=== PATIENT | female | born 1945 | race American Indian/Alaskan Native ===

== ENCOUNTER 2016-10-25 10:37 | Emergency (ER) | payer BC ==
[2016-10-25 12:16] LABS: Basophils % (Auto) 0.6 % (0.0-1.8); Hematocrit 38.5 % (30.3-42.9); Hemoglobin 12.8 gm/dl (10.1-14.3); Mean Corpuscular HGB Conc 33 % (30-34); Mean Corpuscular Hemoglobin 29 pg (28-32); Mean Corpuscular Volume 87 fl (79-97); Platelet Count 148 K/mm3 (140-440); Red Blood Count 4.43 M/mm3 (3.65-5.03); Red Cell Distribution Width 16.1 % (13.2-15.2); White Blood Count 7.7 K/mm3 (4.5-11.0)
[2016-10-25 12:23] LABS: Bilirubin,Urine NEG (Negative); Blood,Urine MOD (Negative); Ketones,Urine NEG (Negative); Leukocyte Esterase,Urine NEG (Negative); Nitrite,Urine NEG (Negative); WBC,Urine < 1.0 /HPF (0.0-6.0)
[2016-10-25 12:29] LABS: BUN/Creatinine Ratio 22.5; Calcium 9.3 mg/dL (8.4-10.2); Chloride 101.7 mmol/L (98-107); Potassium 3.8 mmol/L (3.6-5.0)
[2016-10-25 12:29] LABS: Protein,Urine >500 mg/dL (Negative)
--- NOTE | 2016-10-25 16:29 | Emergency Department Report ---
ED Psych HPI - General Chief Complaint: Medical Clearance Stated Complaint: AIDE EVJANICE Time Seen by Provider: 10/25/16 16:10 Source: family Mode of arrival: Ambulatory - History of Present Illness Initial Comments: 71 years old female history of schizophrenia presented today with a main complaint that she is hearing voices and commanding her to commit suicide. Patient stated that she did overdose once before But denied any drug overdose recently. Her plan is to cut her wrist. No homicidal ideation. MD Complaint: suicidal ideation -: Gradual Associated Psychiatric Symptoms: suicidal ideation, racing thoughts, auditory hallucinations History of same: Yes Quality: getting worse Improves With: none If Self Harm: admits thoughts of, has plan, self-inflicted trauma - Related Data Home Medications Medication Instructions Recorded Confirmed Last Taken No Known Home Medications [No 10/25/16 10/25/16 Unknown Reported Home Medications] Allergies Allergy/AdvReac Type Severity Reaction Status Date / Time Penicillins Allergy Rash Verified 10/25/16 11:27 ED Review of Systems ROS: Stated complaint: EVAL Other details as noted in HPI Comment: All other systems reviewed and negative Constitutional: denies: chills, fever Respiratory: denies: cough, shortness of breath Cardiovascular: denies: chest pain, palpitations Gastrointestinal: denies: abdominal pain, nausea, vomiting Neurological: denies: headache ED Past Medical Hx - Past Medical History Previous Medical History?: Yes Hx Hypertension: Yes Hx Congestive Heart Failure: Yes Hx Dementia: Yes Additional medical history: Cataracts, Hepatitis, Parkinsons - Surgical History Hx Cholecystectomy: Yes Additional Surgical History: Hysterectomy - Social History Smoking Status: Former Smoker Substance Use Type: Marijuana - Medications Home Medications: Home Medications Medication Instructions Recorded Confirmed Last Taken Type No Known Home Medications [No 10/25/16 10/25/16 Unknown History Reported Home Medications] ED Physical Exam - General Limitations: Altered Mental Status General appearance: alert, in no apparent distress - Head Head exam: Present: atraumatic, normocephalic - Eye Eye exam: Present: normal appearance - ENT ENT exam: Present: normal exam, mucous membranes moist - Neck Neck exam: Present: normal inspection - Respiratory Respiratory exam: Present: normal lung sounds bilaterally. Absent: wheezes, rales, rhonchi - Cardiovascular Cardiovascular Exam: Present: regular rate, normal rhythm, normal heart sounds - GI/Abdominal GI/Abdominal exam: Present: soft. Absent: tenderness, guarding, rebound, rigid , normal bowel sounds - Extremities Exam Extremities exam: Present: normal inspection - Back Exam Back exam: Present: normal inspection - Neurological Exam Neurological exam: Present: alert, oriented X3, CN II-XII intact, normal gait, reflexes normal. Absent: motor sensory deficit - Psychiatric Psychiatric exam: Present: depressed, manic, suicidal ideation. Absent: agitated, homicidal ideation - Skin Skin exam: Present: warm, intact ED Course Vital Signs 10/25/16 10/25/16 10/25/16 11:27 18:52 19:13 Temperature 98.7 F 98.9 F Pulse Rate 93 H 115 H Respiratory 20 18 Rate Blood Pressure 159/88 168/95 O2 Sat by Pulse 97 100 96 Oximetry ED Medical Decision Making - Lab Data Result diagrams: 10/25/16 11:47 10/25/16 11:47 Critical care attestation.: If time is entered above; I have spent that time in minutes in the direct care of this critically ill patient, excluding procedure time. ED Disposition Clinical Impression: Acute psychosis Disposition: [id number]/TX-[facility] HOSP/PSY UNIT Is pt being admited?: No Does the pt Need Aspirin: No Condition: Stable Referrals: MANJEET MEDINA MD [Primary Care Provider] - 3-5 Days
[2016-10-25 21:12] LABS: Urine Drugs of Abuse Note Disclamer
[2016-10-26] MEDS ORDERED: NORVASC ONE (00:13)
[2016-10-26] MEDS ORDERED: NORVASC PO ONE (00:18)
[2016-10-26 02:55] VITALS: BP 146/88
== END 2016-10-26 02:31 ==
LOC: EEVIPCON 10:37 → ED 10:37
DX: F23 Brief psychotic disorder (principal); R45.851 Suicidal ideations; I10 Essential (primary) hypertension; I50.9 Heart failure, unspecified; F12.10 Cannabis abuse, uncomplicated; Z87.891 Personal history of nicotine dependence
CPT/HCPCS: 36415; 80048; 80307; 81001; 85025; 99285; G0480; 80320

== ENCOUNTER 2019-02-13 14:02 | Emergency (ER) | payer BC, MEDICARE ==
--- NOTE | 2019-02-13 14:27 | Emergency Department Report ---
ED General Adult HPI - General Chief complaint: Extremity Problem,Nontraumatic Stated complaint: KNEE PAIN Time Seen by Provider: 02/13/19 14:17 Source: patient, family, EMS Mode of arrival: Stretcher Limitations: Physical Limitation - History of Present Illness -: Gradual, week(s) Consistency: constant Improves with: none Worsens with: none Associated Symptoms: denies other symptoms Treatments Prior to Arrival: none - Related Data Home Medications Medication Instructions Recorded Confirmed Last Taken No Known Home Medications [No 10/25/16 10/25/16 Unknown Reported Home Medications] Allergies Allergy/AdvReac Type Severity Reaction Status Date / Time Penicillins Allergy Rash Verified 10/25/16 11:27 ED Review of Systems ROS: Stated complaint: KNEE PAIN Other details as noted in HPI Comment: All other systems reviewed and negative ED Past Medical Hx - Past Medical History Previous Medical History?: Yes Hx Hypertension: Yes Hx CVA: No Hx Heart Attack/AMI: No Hx Congestive Heart Failure: Yes Hx Diabetes: No Hx Deep Vein Thrombosis: No Hx Pulmonary Embolism: No Hx GERD: No Hx Liver Disease: Yes Hx Renal Disease: No Hx of Cancer: No Hx Sickle Cell Disease: No Hx Arthritis: No Hx Headaches / Migraines: No Hx Seizures: No Hx Kidney Stones: No Hx Psychiatric Treatment: No Hx Asthma: No Hx COPD: No Hx Tuberculosis: No Hx Dementia: Yes Hx HIV: No Additional medical history: Cataracts, Hepatitis, Parkinsons, Dementia - Surgical History Past Surgical History?: Yes Hx Cholecystectomy: Yes Additional Surgical History: Hysterectomy - Family History Family history: no significant - Social History Smoking Status: Former Smoker Substance Use Type: None - Medications Home Medications: Home Medications Medication Instructions Recorded Confirmed Last Taken Type No Known Home Medications [No 10/25/16 10/25/16 Unknown History Reported Home Medications] ED Physical Exam - General Limitations: Physical Limitation General appearance: alert, in no apparent distress - Head Head exam: Present: atraumatic, normocephalic - Eye Eye exam: Present: normal appearance - ENT ENT exam: Present: mucous membranes moist - Neck Neck exam: Present: normal inspection - Respiratory Respiratory exam: Present: normal lung sounds bilaterally. Absent: respiratory distress - Cardiovascular Cardiovascular Exam: Present: regular rate, normal rhythm. Absent: systolic murmur, diastolic murmur, rubs, gallop - GI/Abdominal GI/Abdominal exam: Present: soft, normal bowel sounds - Extremities Exam Extremities exam: Present: normal inspection - Back Exam Back exam: Present: normal inspection - Neurological Exam Neurological exam: Present: alert - Psychiatric Psychiatric exam: Present: normal affect, normal mood - Skin Skin exam: Present: warm, dry, intact, normal color. Absent: rash ED Course Vital Signs 02/13/19 02/13/19 14:03 15:30 Temperature 99.0 F Pulse Rate 81 73 Respiratory 16 18 Rate Blood Pressure 172/75 Blood Pressure 152/74 [Right] O2 Sat by Pulse 99 100 Oximetry ED Medical Decision Making - Lab Data Result diagrams: 02/13/19 14:47 02/13/19 14:47 - EKG Data EKG shows normal: sinus rhythm Rate: normal - EKG Data When compared to previous EKG there are: no significant change Interpretation: no acute changes - Radiology Data Radiology results: report reviewed, image reviewed - Medical Decision Making Vital Signs 02/13/19 02/13/19 14:03 15:30 Temperature 99.0 F Pulse Rate 81 73 Respiratory 16 18 Rate Blood Pressure 172/75 Blood Pressure 152/74 [Right] O2 Sat by Pulse 99 100 Oximetry Labs 02/13/19 02/13/19 02/13/19 14:47 14:47 16:22 WBC 5.7 RBC 4.37 Hgb 12.1 Hct 37.0 MCV 85 MCH 28 MCHC 33 RDW 15.8 H Plt Count 179 Lymph % (Auto) 35.7 H Worth % (Auto) 5.2 Eos % (Auto) 2.7 Baso % (Auto) 1.0 Lymph # 2.0 Worth # 0.3 Eos # 0.2 Baso # 0.1 Seg Neutrophils % 55.4 Seg Neutrophils # 3.2 Sodium 143 Potassium 3.3 L Chloride 111.6 H Carbon Dioxide 19 L Anion Gap 16 BUN 20 H Creatinine 1.1 Estimated GFR 59 BUN/Creatinine Ratio 18 Glucose 121 H Calcium 9.2 Total Bilirubin 0.20 AST 14 ALT < 5 L Alkaline Phosphatase 91 Troponin T < 0.010 NT-Pro-B Natriuret Pep 112.0 Total Protein 7.7 Albumin 3.0 L Albumin/Globulin Ratio 0.6 Urine Color Yellow Urine Turbidity Clear Urine pH 6.0 Ur Specific [place] 1.022 Urine Protein >500 Urine Glucose (UA) Neg Urine Ketones Tr Urine Blood Sm Urine Nitrite Neg Urine Bilirubin Neg Urine Urobilinogen < 2.0 Ur Leukocyte Esterase Neg Urine WBC (Auto) 1.0 Urine RBC (Auto) 10.0 U Epithel Cells (Auto) 2.0 Urine Mucus Few - Differential Diagnosis ro uti/ro infectious etiology /ro acs/ ro hf Critical care attestation.: If time is entered above; I have spent that time in minutes in the direct care of this critically ill patient, excluding procedure time. ED Disposition Clinical Impression: Proteinuria, History of dementia Disposition: DC- TO HOME OR SELFCARE Is pt being admited?: No Does the pt Need Aspirin: No Condition: Stable Instructions: Dementia (ED), Parkinson's Disease (ED) Additional Instructions: KEEP WELL HYDRATED FOLLOW UP WITH PCP AND KIDNEY DOCTOR [facility] REFERRALS BELOW ACTIVITY TOLERATED Referrals: MICHAEL DIMAS MD [Staff Physician] - 3-5 Days CAMILLE MALONEY MD [Staff Physician] - 3-5 Days Time of Disposition: 16:38
--- NOTE | 2019-02-13 14:58 | XRay Report ---
CHEST 1 VIEW 2:25 PM INDICATION / CLINICAL INFORMATION: Swelling. COMPARISON: None available. FINDINGS: SUPPORT DEVICES: None. HEART / MEDIASTINUM: The heart size and pulmonary vasculature are normal. LUNGS / PLEURA: No significant pulmonary or pleural abnormality. No pneumothorax. ADDITIONAL FINDINGS: No significant additional findings. IMPRESSION: No acute findings. Signer Name: Cipriano Stovall MD Signed: 02/13/2019 2:54 PM Workstation Name: [id number]
[2019-02-13 15:26] LABS: Basophils # (Auto) 0.1 K/mm3 (0.0-0.1); Eosinophils # (Auto) 0.2 K/mm3 (0.0-0.4); Eosinophils % (Auto) 2.7 % (0.0-4.3); Hemoglobin 12.1 gm/dl (10.1-14.3); Lymphocytes % (Auto) 35.7 % (13.4-35.0); Mean Corpuscular HGB Conc 33 % (30-34); Mean Corpuscular Volume 85 fl (79-97); Monocytes # (Auto) 0.3 K/mm3 (0.0-0.8); Monocytes % (Auto) 5.2 % (0.0-7.3); Platelet Count 179 K/mm3 (140-440); Red Blood Count 4.37 M/mm3 (3.65-5.03); Red Cell Distribution Width 15.8 % (13.2-15.2)
[2019-02-13 15:51] LABS: BUN/Creatinine Ratio 18; Blood Urea Nitrogen 20 mg/dL (7-17); Calcium 9.2 mg/dL (8.4-10.2); Hemolysis Index 17
[2019-02-13 15:52] LABS: Alanine Aminotransferase < 5 units/L (7-56)
[2019-02-13] MEDS ORDERED: POTASSIUM CHLORIDE ER 20 MEQ TAB PO ONE (15:59)
[2019-02-13] MEDS ORDERED: IBUPROFEN 600 MG TAB PO ONE (16:09)
[2019-02-13 16:35] LABS: Bilirubin,Urine NEG (Negative); Blood,Urine SM (Negative); Color,Urine Yellow (Yellow); Mucus,Urine FEW /HPF; Urobilinogen,Urine < 2.0 mg/dL (<2.0)
[2019-02-13 16:36] LABS: Protein,Urine >500 mg/dL (Negative)
[2019-02-13] MEDS ORDERED: SODIUM CHLORIDE 0.9% 1000 ML 1,000 ML IV ONE (16:38)
[2019-02-13 18:50] VITALS: BP 160/73
== END 2019-02-13 18:49 | disposition home or self-care (01) ==
LOC: ED 14:02
DX: R80.9 Proteinuria, unspecified (principal); F03.90 Unspecified dementia, unspecified severity, without behavioral disturbance, psychotic disturbance, mood disturbance, and anxiety; I11.0 Hypertensive heart disease with heart failure; I50.9 Heart failure, unspecified; Z90.710 Acquired absence of both cervix and uterus; Z90.49 Acquired absence of other specified parts of digestive tract; Z87.891 Personal history of nicotine dependence; Z79.899 Other long term (current) drug therapy; Z88.0 Allergy status to penicillin
CPT/HCPCS: 36415; 71045; 80053; 81001; 83880; 84484; 85025; 93005; 93010; 99284; J7030

== ENCOUNTER 2019-07-31 12:48 | Inpatient (IN) | payer BC ==
[2019-07-31] MEDS ORDERED: ACETAMINOPHEN 500 MG TAB PO ONE (13:11)
[2019-07-31 13:35] LABS: Basophils % (Auto) 0.6 % (0.0-1.8); Eosinophils # (Auto) 0.1 K/mm3 (0.0-0.4); Hematocrit 35.4 % (30.3-42.9); Hemoglobin 11.4 gm/dl (10.1-14.3); Lymphocytes % (Auto) 36.8 % (13.4-35.0); Mean Corpuscular HGB Conc 32 % (30-34); Mean Corpuscular Volume 84 fl (79-97); Monocytes # (Auto) 0.5 K/mm3 (0.0-0.8); Monocytes % (Auto) 8.3 % (0.0-7.3); Platelet Count 147 K/mm3 (140-440); Red Cell Distribution Width 15.5 % (13.2-15.2)
[2019-07-31 13:47] LABS: INR 1.12 (0.87-1.13)
[2019-07-31 13:48] LABS: Partial Thromboplastin Time 29.9 Sec. (24.2-36.6)
[2019-07-31 13:51] LABS: Calcium 9.2 mg/dL (8.4-10.2)
[2019-07-31 14:15] LABS: Chol/HDL Ratio 3.4 %
--- NOTE | 2019-07-31 14:41 | Emergency Department Report ---
ED General Adult HPI - General Chief complaint: Weakness Stated complaint: CHEST PAIN/BLOOD IN SPUTUM Time Seen by Provider: 07/31/19 13:24 Source: EMS Mode of arrival: Stretcher Limitations: Altered Mental Status - History of Present Illness Initial comments: 73-year-old female with history of hypertension, CHF (55-60% EF), Parkinson's disease, dementia, presents to ED for evaluation. Patient arrived by EMS. EMS states daughter told them patient was "not feeling well" x1 day. Daughters stated that patient coughed this morning and there were blood streaks present in the sputum. Patient fever, headache, vomiting, diarrhea, abdominal pain and co ugh. Patient does report chest pain just prior to ED arrival which she says has resolved. -: days(s) (1) Location: chest Severity scale (0 -10): 0 Consistency: now resolved Improves with: none Worsens with: none Associated Symptoms: chest pain, cough, weakness. denies: fever/chills, headaches, nausea/vomiting, shortness of breath Treatments Prior to Arrival: none - Related Data Previous Rx's Medication Instructions Recorded Last Taken Type Famotidine [Pepcid] 20 mg PO BID tablet 05/01/19 Unknown Rx amLODIPine 5 mg PO QDAY tablet 05/01/19 Unknown Rx hydrALAZINE [Apresoline TAB] 50 mg PO Q8HR tablet 05/01/19 Unknown Rx Allergies Allergy/AdvReac Type Severity Reaction Status Date / Time Penicillins Allergy Rash Verified 10/25/16 11:27 ED Review of Systems ROS: Stated complaint: CHEST PAIN/BLOOD IN SPUTUM Other details as noted in HPI Comment: All other systems reviewed and negative Constitutional: denies: chills, fever Respiratory: cough. denies: shortness of breath Cardiovascular: chest pain Gastrointestinal: denies: vomiting, diarrhea ED Past Medical Hx - Past Medical History Previous Medical History?: Yes Hx Hypertension: Yes Hx CVA: No Hx Heart Attack/AMI: No Hx Congestive Heart Failure: Yes Hx Diabetes: No Hx Deep Vein Thrombosis: No Hx Pulmonary Embolism: No Hx GERD: No Hx Liver Disease: Yes Hx Renal Disease: No Hx Sickle Cell Disease: No Hx Arthritis: No Hx Headaches / Migraines: No Hx Seizures: No Hx Kidney Stones: No Hx Psychiatric Treatment: No Hx Asthma: No Hx COPD: No Hx Tuberculosis: No Hx Dementia: Yes Hx HIV: No Additional medical history: Cataracts, Hepatitis, Parkinsons, Dementia - Surgical History Past Surgical History?: Yes Hx Cholecystectomy: Yes Additional Surgical History: Hysterectomy - Social History Smoking Status: Former Smoker - Medications Home Medications: Home Medications Medication Instructions Recorded Confirmed Last Taken Type Famotidine [Pepcid] 20 mg PO BID tablet 05/01/19 Unknown Rx amLODIPine 5 mg PO QDAY tablet 05/01/19 Unknown Rx hydrALAZINE [Apresoline TAB] 50 mg PO Q8HR tablet 05/01/19 Unknown Rx ED Physical Exam - General Limitations: Altered Mental Status General appearance: alert, in no apparent distress - Head Head exam: Present: atraumatic, normocephalic - Eye Eye exam: Present: normal appearance, EOMI - ENT ENT exam: Present: mucous membranes moist - Neck Neck exam: Present: normal inspection - Respiratory Respiratory exam: Present: normal lung sounds bilaterally. Absent: respiratory distress - Cardiovascular Cardiovascular Exam: Present: regular rate, normal rhythm - GI/Abdominal GI/Abdominal exam: Present: soft. Absent: distended, tenderness - Extremities Exam Extremities exam: Present: normal inspection. Absent: pedal edema, calf tenderness - Neurological Exam Neurological exam: Present: alert. Absent: oriented X3 (oriented to person and place only) - Psychiatric Psychiatric exam: Present: normal affect, normal mood - Skin Skin exam: Present: warm, dry, intact, normal color ED Course Vital Signs 07/31/19 07/31/19 07/31/19 12:57 13:04 13:30 Temperature 100.3 F H Pulse Rate 81 85 87 Respiratory 18 12 16 Rate Blood Pressure 138/77 132/85 Blood Pressure [Left] O2 Sat by Pulse 99 96 Oximetry 07/31/19 07/31/19 07/31/19 14:30 15:07 19:09 Temperature 99.3 F 99.1 F Pulse Rate 83 Respiratory 17 Rate Blood Pressure 144/73 Blood Pressure [Left] O2 Sat by Pulse 98 Oximetry 07/31/19 07/31/19 07/31/19 20:00 20:30 21:00 Temperature 98.2 F Pulse Rate 92 H 85 80 Respiratory 14 15 20 Rate Blood Pressure 166/81 150/72 Blood Pressure 154/76 [Left] O2 Sat by Pulse 94 95 93 Oximetry 07/31/19 07/31/19 07/31/19 21:30 22:00 22:30 Temperature Pulse Rate 80 78 83 Respiratory 19 17 18 Rate Blood Pressure 157/81 167/73 149/79 Blood Pressure [Left] O2 Sat by Pulse 94 94 95 Oximetry 07/31/19 07/31/19 07/31/19 23:00 23:27 23:30 Temperature Pulse Rate 75 81 82 Respiratory 17 14 20 Rate Blood Pressure 159/74 159/74 158/83 Blood Pressure [Left] O2 Sat by Pulse 95 99 96 Oximetry 07/31/19 07/31/19 08/01/19 23:31 23:32 00:00 Temperature Pulse Rate 85 74 67 Respiratory 20 18 Rate Blood Pressure 159/83 158/83 141/65 Blood Pressure [Left] O2 Sat by Pulse 97 93 Oximetry 08/01/19 08/01/19 08/01/19 00:30 01:00 01:30 Temperature Pulse Rate 67 66 73 Respiratory 16 16 19 Rate Blood Pressure 134/63 131/64 143/67 Blood Pressure [Left] O2 Sat by Pulse 96 95 96 Oximetry 08/01/19 08/01/19 08/01/19 02:00 02:30 02:46 Temperature Pulse Rate 83 74 72 Respiratory 16 14 18 Rate Blood Pressure 141/81 148/78 148/78 Blood Pressure [Left] O2 Sat by Pulse 97 98 97 Oximetry 08/01/19 08/01/19 08/01/19 03:00 03:16 03:30 Temperature Pulse Rate 71 74 77 Respiratory 19 16 16 Rate Blood Pressure 139/70 139/70 140/76 Blood Pressure [Left] O2 Sat by Pulse 94 95 93 Oximetry 08/01/19 08/01/19 08/01/19 03:46 04:00 04:16 Temperature Pulse Rate 71 74 71 Respiratory 17 15 19 Rate Blood Pressure 140/76 132/67 132/67 Blood Pressure [Left] O2 Sat by Pulse 95 94 97 Oximetry 08/01/19 08/01/19 08/01/19 04:46 05:00 05:16 Temperature Pulse Rate 74 78 72 Respiratory 18 16 16 Rate Blood Pressure 138/68 133/74 133/74 Blood Pressure [Left] O2 Sat by Pulse 95 95 97 Oximetry 08/01/19 08/01/19 08/01/19 05:30 05:46 06:16 Temperature Pulse Rate 77 73 67 Respiratory 15 14 15 Rate Blood Pressure 122/77 122/77 132/67 Blood Pressure [Left] O2 Sat by Pulse 95 98 96 Oximetry 08/01/19 08/01/19 06:30 07:30 Temperature 98.2 F Pulse Rate 74 74 Respiratory 18 18 Rate Blood Pressure 138/77 Blood Pressure 138/72 [Left] O2 Sat by Pulse 95 95 Oximetry - Reevaluation(s) Reevaluation #1: 07/31/19 14:52 Attempted to call pt's daughter Kristyn, however, no answer. ED Medical Decision Making - Lab Data Result diagrams: 08/01/19 04:31 08/01/19 04:31 - Radiology Data Radiology results: report reviewed, image reviewed - Medical Decision Making 73 yo F presents to ED with low grade fever, report of cough w/ blood-streaked sputum, and chest pain. UA negative. CXR negative. EKG unremarkable, but troponin slightly elevated. Pt was admitted Mar 2019 and had negative troponins during that workup. No stress test was performed at that time. There is a suspicion for COVID due to pt's fever and cough which was reported by her daught er. Isolation precautions used. WBCs normal, including lymphocytes. D-dimer elevated. Pt will be admitted to hospitalist, Dr Lyle, for further evaluation due to elevated troponin. V/Q scan ordered to evaluate for PE. Dr Lyle to f/u on results and order COVID testing. - Differential Diagnosis pneumonia, PE, COVID-19, UTI Critical care attestation.: If time is entered above; I have spent that time in minutes in the direct care of this critically ill patient, excluding procedure time. ED Disposition Clinical Impression: Fever, Acute chest pain, Elevated troponin, Acute renal failure Disposition: OP ADMIT IP TO THIS HOSP Is pt being admited?: Yes Condition: Stable Time of Disposition: 15:56
[2019-07-31 15:13] LABS: Bilirubin,Urine NEG (Negative); Blood,Urine NEG (Negative); Color,Urine Yellow (Yellow); Mucus,Urine FEW /HPF; Protein,Urine <15 mg/dL mg/dL (Negative); Urobilinogen,Urine < 2.0 mg/dL (<2.0)
[2019-07-31] MEDS ORDERED: SODIUM CHLORIDE 0.9% 500 ML 500 ML IV ONE (15:23)
[2019-07-31] MEDS ORDERED: ASPIRIN 325 MG TAB PO ONE (15:44)
[2019-07-31] MEDS ORDERED: LORazepam 2 MG/ML VIAL IV PRN (20:20)
[2019-07-31] MEDS: LORazepam 2 MG/ML VIAL IV PRN (20:20)
[2019-07-31] MEDS ORDERED: LORazepam 2 MG/ML VIAL ONE (20:22)
[2019-07-31] MEDS ORDERED: ONDANSETRON 4 MG/2 ML INJ IV PRN (22:48)
[2019-07-31] MEDS ORDERED: HYDROmorphone 1 MG/1 ML INJ IV PRN (22:48)
[2019-07-31] MEDS ORDERED: ACETAMINOPHEN 325 MG TAB PO PRN (22:48)
[2019-07-31] MEDS ORDERED: METOCLOPRAMIDE 10 MG/2 ML INJ IV PRN (22:48)
[2019-07-31] MEDS ORDERED: SODIUM CHLORIDE 0.9% 1000 ML 1,000 ML IV SCH (23:00)
[2019-07-31] MEDS ORDERED: SODIUM CHLORIDE 0.9% 1000 ML 1,000 ML ONE (23:03)
[2019-07-31] MEDS ORDERED: hydrALAZINE 25 MG TAB ONE (23:04)
[2019-07-31] MEDS ORDERED: FAMOTIDINE 20 MG TAB ONE (23:06)
[2019-07-31] MEDS: FAMOTIDINE 20 MG TAB PO SCH (23:30)
[2019-07-31] MEDS: hydrALAZINE 25 MG TAB PO SCH (23:31)
[2019-08-01] MEDS ORDERED: LORazepam 2 MG/ML VIAL ONE (02:27)
[2019-08-01] MEDS: LORazepam 2 MG/ML VIAL IV PRN ×3 (02:30→21:11)
[2019-08-01 05:27] LABS: Basophils % (Auto) 0.8 % (0.0-1.8); Eosinophils # (Auto) 0.1 K/mm3 (0.0-0.4); Hematocrit 33.5 % (30.3-42.9); Hemoglobin 10.9 gm/dl (10.1-14.3); Lymphocytes # (Auto) 2.9 K/mm3 (1.2-5.4); Lymphocytes % (Auto) 46.7 % (13.4-35.0); Mean Corpuscular HGB Conc 33 % (30-34); Mean Corpuscular Volume 83 fl (79-97); Monocytes # (Auto) 0.5 K/mm3 (0.0-0.8); Monocytes % (Auto) 8.4 % (0.0-7.3); Platelet Count 154 K/mm3 (140-440); Red Blood Count 4.04 M/mm3 (3.65-5.03); Red Cell Distribution Width 15.5 % (13.2-15.2)
[2019-08-01 05:49] LABS: Albumin 3.6 g/dL (3.9-5); Calcium 8.8 mg/dL (8.4-10.2)
--- NOTE | 2019-08-01 08:11 | History and Physical Report ---
History of Present Illness Date of examination: 07/31/19 Date of admission: 07/31/19 15:58 Chief complaint: Cough with blood streak sputum History of present illness: 73-year-old female with history of hypertension, CHF (55-60% EF), Parkinson's disease, dementia, presents to ED for evaluation. Patient arrived by EMS. EMS states daughter told them patient was "not feeling well" x1 day. Daughters stated that patient coughed this morning and there were blood streaks present in the sputum. Patient has no fever, headache, vomiting, diarrhea, abdominal pain and cough. Patient does report chest pain just prior to ED arrival which she says has resolved. - Past Medical History Previous Medical History?: Yes Hx Hypertension: Yes Hx Congestive Heart Failure: Yes Hx Liver Disease: Yes Hx Dementia: Yes Additional medical history: Cataracts, Hepatitis, Parkinsons, Dementia - Surgical History Past Surgical History?: Yes Hx Cholecystectomy: Yes Additional Surgical History: Hysterectomy - Social History Smoking Status: Former Smoker Family History Htn - Medications Home Medications: Home Medications Medication Instructions Recorded Confirmed Last Taken Type Famotidine [Pepcid] 20 mg PO BID tablet 05/01/19 Unknown Rx amLODIPine 5 mg PO QDAY tablet 05/01/19 Unknown Rx hydrALAZINE [Apresoline TAB] 50 mg PO Q8HR tablet 05/01/19 Unknown Rx Review of Systems ROS: Stated complaint: CHEST PAIN/BLOOD IN SPUTUM Other details as noted in HPI Comment: All other systems reviewed and negative Constitutional: denies: chills, fever Respiratory: cough. denies: shortness of breath Cardiovascular: chest pain Gastrointestinal: denies: vomiting, diarrhea Medications and Allergies Allergies Allergy/AdvReac Type Severity Reaction Status Date / Time Penicillins Allergy Rash Verified 10/25/16 11:27 Home Medications Medication Instructions Recorded Confirmed Last Taken Type Famotidine [Pepcid] 20 mg PO BID tablet 05/01/19 Unknown Rx amLODIPine 5 mg PO QDAY tablet 05/01/19 Unknown Rx hydrALAZINE [Apresoline TAB] 50 mg PO Q8HR tablet 05/01/19 Unknown Rx Active Meds: Active Medications Acetaminophen (Tylenol) 650 mg PO Q4H PRN PRN Reason: Pain MILD(1-3)/Fever >100.5/SANTO Amlodipine Besylate (Amlodipine) 5 mg PO QDAY [facility] Famotidine (Pepcid) 20 mg PO QAM [facility] Last Admin: 07/31/19 23:30 Dose: 20 mg Documented by: Hydralazine HCl (Apresoline) 50 mg PO Q8HR [facility] Last Admin: 07/31/19 23:31 Dose: 50 mg Documented by: Hydromorphone HCl (Dilaudid) 0.5 mg IV Q3H PRN PRN Reason: Pain , Severe (7-10) Sodium Chloride (Nacl 0.9% 1000 Ml) 1,000 mls @ 75 mls/hr IV DIRECT [facility] Last Admin: 07/31/19 23:25 Dose: 75 mls/hr Documented by: Ceftriaxone Sodium (Rocephin/Ns 2 Gm/100 Ml) 2 gm in 100 mls @ 200 mls/hr IV Q24HR [facility]; Protocol Lorazepam (Ativan) 1 mg IV Q3H PRN PRN Reason: Agitation Last Admin: 08/01/19 02:30 Dose: 1 mg Documented by: Metoclopramide HCl (Reglan) 5 mg IV Q6H PRN PRN Reason: Nausea And Vomiting Ondansetron HCl (Zofran) 4 mg IV Q8H PRN PRN Reason: Nausea And Vomiting Oxycodone/Acetaminophen (Percocet 5/325) 1 tab PO Q6H PRN PRN Reason: Pain, Moderate (4-6) Sodium Chloride (Sodium Chloride Flush Syringe 10 Ml) 10 ml IV BID [facility] Last Admin: 07/31/19 23:25 Dose: 10 ml Documented by: Sodium Chloride (Sodium Chloride Flush Syringe 10 Ml) 10 ml IV PRN PRN PRN Reason: LINE FLUSH Exam - Constitutional Vitals: Temp Pulse Resp BP Pulse Ox 98.2 F 74 18 138/72 95 08/01/19 07:30 08/01/19 07:30 08/01/19 07:30 08/01/19 07:30 08/01/19 07:30 General appearance: Present: no acute distress, well-nourished - EENT Eyes: Present: PERRL ENT: hearing intact, clear oral mucosa - Neck Neck: Present: supple, normal ROM - Respiratory Respiratory effort: normal Respiratory: bilateral: CTA, rhonchi - Cardiovascular Heart rate: 78 Rhythm: regular Heart Sounds: Present: S1 & S2. Absent: rub, click - Extremities Extremities: no ischemia, pulses intact, pulses symmetrical, No edema Peripheral Pulses: within normal limits - Abdominal General gastrointestinal: Present: soft, non-tender, non-distended, normal bowel sounds Female genitourinary: Present: normal - Integumentary Integumentary: Present: clear, warm, dry - Musculoskeletal Musculoskeletal: gait normal, strength equal bilaterally - Psychiatric Psychiatric: appropriate mood/affect, intact judgment & insight - Neurologic Neurologic: CNII-XII intact, moves all extremities - Allied Health Allied health notes reviewed: nursing, case management HEART Score - HEART Score Troponin: Troponin T 0.067 ng/mL (0.00-0.029) H 07/31/19 13:15 Results - Labs CBC & Chem 7: 08/01/19 04:31 08/01/19 04:31 Labs: Laboratory Last Values WBC 6.1 K/mm3 (4.5-11.0) 08/01/19 04:31 RBC 4.04 M/mm3 (3.65-5.03) 08/01/19 04:31 Hgb 10.9 gm/dl (10.1-14.3) 08/01/19 04:31 Hct 33.5 % (30.3-42.9) 08/01/19 04:31 MCV 83 fl (79-97) 08/01/19 04:31 MCH 27 pg (28-32) L 08/01/19 04:31 MCHC 33 % (30-34) 08/01/19 04:31 RDW 15.5 % (13.2-15.2) H 08/01/19 04:31 Plt Count 154 K/mm3 (140-440) 08/01/19 04:31 Lymph % (Auto) 46.7 % (13.4-35.0) H 08/01/19 04:31 [place] % (Auto) 8.4 % (0.0-7.3) H 08/01/19 04:31 Eos % (Auto) 2.0 % (0.0-4.3) 08/01/19 04:31 Baso % (Auto) 0.8 % (0.0-1.8) 08/01/19 04:31 Lymph # 2.9 K/mm3 (1.2-5.4) 08/01/19 04:31 [place] # 0.5 K/mm3 (0.0-0.8) 08/01/19 04:31 Eos # 0.1 K/mm3 (0.0-0.4) 08/01/19 04:31 Baso # 0.0 K/mm3 (0.0-0.1) 08/01/19 04:31 Seg Neutrophils % 42.1 % (40.0-70.0) 08/01/19 04:31 Seg Neutrophils # 2.6 K/mm3 (1.8-7.7) 08/01/19 04:31 PT 14.5 Sec. (12.2-14.9) 07/31/19 13:15 INR 1.12 (0.87-1.13) 07/31/19 13:15 APTT 29.9 Sec. (24.2-36.6) 07/31/19 13:15 D-Dimer 772.77 ng/mlDDU (0-234) H 07/31/19 13:15 Sodium 144 mmol/L (137-145) 08/01/19 04:31 Potassium 3.7 mmol/L (3.6-5.0) 08/01/19 04:31 Chloride 108.6 mmol/L (98-107) H 08/01/19 04:31 Carbon Dioxide 23 mmol/L (22-30) 08/01/19 04:31 Anion Gap 16 mmol/L 08/01/19 04:31 BUN 23 mg/dL (7-17) H 08/01/19 04:31 Creatinine 1.5 mg/dL (0.7-1.2) H 08/01/19 04:31 Estimated GFR 41 ml/min 08/01/19 04:31 BUN/Creatinine Ratio 15 % 08/01/19 04:31 Glucose 92 mg/dL (65-100) 08/01/19 04:31 Hemoglobin A1c 5.0 % (4-6) 08/01/19 04:31 Calcium 8.8 mg/dL (8.4-10.2) 08/01/19 04:31 Total Bilirubin 0.40 mg/dL (0.1-1.2) 08/01/19 04:31 AST 27 units/L (5-40) 08/01/19 04:31 ALT 15 units/L (7-56) 08/01/19 04:31 Alkaline Phosphatase 63 units/L (35-129) 08/01/19 04:31 Troponin T 0.067 ng/mL (0.00-0.029) H 07/31/19 13:15 Total Protein 6.9 g/dL (6.3-8.2) 08/01/19 04:31 Albumin 3.6 g/dL (3.9-5) L 08/01/19 04:31 Albumin/Globulin Ratio 1.1 % 08/01/19 04:31 Triglycerides 112 mg/dL (2-149) 07/31/19 13:15 Cholesterol 218 mg/dL (50-199) H 07/31/19 13:15 LDL Cholesterol Direct 139 mg/dL (50-130) H 07/31/19 13:15 HDL Cholesterol 64 mg/dL (40-59) H 07/31/19 13:15 Cholesterol/HDL Ratio 3.40 % 07/31/19 13:15 Urine Color Yellow (Yellow) 07/31/19 15:00 Urine Turbidity Clear (Clear) 07/31/19 15:00 Urine pH 5.0 (5.0-7.0) 07/31/19 15:00 Ur Specific [place] 1.010 (1.003-1.030) 07/31/19 15:00 Urine Protein <15 mg/dl mg/dL (Negative) 07/31/19 15:00 Urine Glucose (UA) Neg mg/dL (Negative) 07/31/19 15:00 Urine Ketones Neg mg/dL (Negative) 07/31/19 15:00 Urine Blood Neg (Negative) 07/31/19 15:00 Urine Nitrite Neg (Negative) 07/31/19 15:00 Urine Bilirubin Neg (Negative) 07/31/19 15:00 Urine Urobilinogen < 2.0 mg/dL (<2.0) 07/31/19 15:00 Ur Leukocyte Esterase Neg (Negative) 07/31/19 15:00 Urine WBC (Auto) 1.0 /HPF (0.0-6.0) 07/31/19 15:00 Urine RBC (Auto) 1.0 /HPF (0.0-6.0) 07/31/19 15:00 U Epithel Cells (Auto) 1.0 /HPF (0-13.0) 07/31/19 15:00 Urine Mucus Few /HPF 07/31/19 15:00 Short CBC 07/31/19 08/01/19 Range/Units 13:15 04:31 WBC 5.4 6.1 (4.5-11.0) K/mm3 Hgb 11.4 10.9 (10.1-14.3) gm/dl Hct 35.4 33.5 (30.3-42.9) % Plt Count 147 154 (140-440) K/mm3 BMP 07/31/19 08/01/19 13:15 04:31 Sodium 138 144 Potassium 4.0 3.7 Chloride 103.6 108.6 H Carbon Dioxide 22 23 BUN 25 H 23 H Creatinine 1.6 H 1.5 H Glucose 114 H 92 Calcium 9.2 8.8 Cardiac Enzymes 07/31/19 Range/Units 13:15 Troponin T 0.067 H (0.00-0.029) ng/mL Liver Function 08/01/19 Range/Units 04:31 Total Bilirubin 0.40 (0.1-1.2) mg/dL AST 27 (5-40) units/L ALT 15 (7-56) units/L Alkaline Phosphatase 63 (35-129) units/L Albumin 3.6 L (3.9-5) g/dL Urine 07/31/19 Range/Units 15:00 Urine Color Yellow (Yellow) Urine pH 5.0 (5.0-7.0) Ur Specific [place] 1.010 (1.003-1.030) Urine Protein <15 mg/dl (Negative) mg/dL Urine Glucose (UA) Neg (Negative) mg/dL [place]/IV: IV Catheter Type [Left Forearm INT / Saline Lock ] Assessment and Plan Advance Directives: Yes (Full code) VTE prophylaxis?: Chemical Plan of care discussed with patient/family: Yes - Patient Problems (1) MARGARETTE (acute kidney injury) Current Visit: Yes Status: Acute Plan to address problem: Sec to ATN IV fluids for now (2) Bronchitis Current Visit: Yes Status: Acute Plan to address problem: IV Rocephin for now CXR--Normal (3) Elevated troponin Current Visit: Yes Status: Acute Plan to address problem: Trend the troponin Cardiology consult Chest pain transient No Lexiscan at this pont Cardiology consult (4) CHF (congestive heart failure) Current Visit: Yes Status: Chronic Qualifiers: Heart failure type: combined systolic and diastolic Plan to address problem: ECHO FOR EF (5) Hypertension Current Visit: No Status: Chronic Qualifiers: Hypertension type: essential hypertension Qualified Code(s): I10 - Essential (primary) hypertension Plan to address problem: Cont antihypertensives (6) DVT prophylaxis Current Visit: No Status: Acute Plan to address problem: On Lovenox and GI prophylaxis
[2019-08-01] MEDS: FAMOTIDINE 20 MG TAB PO SCH (09:22)
[2019-08-01] MEDS: cefTRIAXone/NS 2 GM/100 ML 2 GM/100 ML BAG IV SCH (09:22)
[2019-08-01] MEDS: amLODIPine 5 MG TAB PO SCH (09:23)
[2019-08-01] MEDS: hydrALAZINE 25 MG TAB PO SCH ×3 (09:27→21:12)
[2019-08-01] MEDS ORDERED: HEPARIN 10,000 UNITS/10 ML VIAL IV ONE (10:00)
--- NOTE | 2019-08-01 11:28 | Consultation ---
History of Present Illness Consult date: 08/01/19 Requesting physician: MARY DARBY Reason for consult: pulmonary embolism History of present illness: [facility] CONSULT NOTE (Full dictation # [id number]) Please see dictated notes for full details Medications and Allergies Allergies Allergy/AdvReac Type Severity Reaction Status Date / Time Penicillins Allergy Rash Verified 10/25/16 11:27 Home Medications Medication Instructions Recorded Confirmed Last Taken Type Famotidine [Pepcid] 20 mg PO BID tablet 05/01/19 Unknown Rx amLODIPine 5 mg PO QDAY tablet 05/01/19 Unknown Rx hydrALAZINE [Apresoline TAB] 50 mg PO Q8HR tablet 05/01/19 Unknown Rx Active Meds: Active Medications Acetaminophen (Tylenol) 650 mg PO Q4H PRN PRN Reason: Pain MILD(1-3)/Fever >100.5/SANTO Amlodipine Besylate (Amlodipine) 5 mg PO QDAY [facility] Last Admin: 08/01/19 09:23 Dose: 5 mg Documented by: Famotidine (Pepcid) 20 mg PO QAM [facility] Last Admin: 08/01/19 09:22 Dose: 20 mg Documented by: Hydralazine HCl (Apresoline) 50 mg PO Q8HR [facility] Last Admin: 08/01/19 09:27 Dose: Not Given Documented by: Hydromorphone HCl (Dilaudid) 0.5 mg IV Q3H PRN PRN Reason: Pain , Severe (7-10) Sodium Chloride (Nacl 0.9% 1000 Ml) 1,000 mls @ 75 mls/hr IV DIRECT [facility] Last Admin: 07/31/19 23:25 Dose: 75 mls/hr Documented by: Ceftriaxone Sodium (Rocephin/Ns 2 Gm/100 Ml) 2 gm in 100 mls @ 200 mls/hr IV Q24HR [facility]; Protocol Last Admin: 08/01/19 09:22 Dose: 200 mls/hr Documented by: Heparin Sodium/Sodium Chloride (Heparin/ 0.45% Nacl-25,000 Unit/500 Ml) 25,000 unit in 500 mls @ 24 mls/hr IV TITR [facility]; Protocol Lorazepam (Ativan) 1 mg IV Q3H PRN PRN Reason: Agitation Last Admin: 08/01/19 10:29 Dose: 1 mg Documented by: Metoclopramide HCl (Reglan) 5 mg IV Q6H PRN PRN Reason: Nausea And Vomiting Ondansetron HCl (Zofran) 4 mg IV Q8H PRN PRN Reason: Nausea And Vomiting Oxycodone/Acetaminophen (Percocet 5/325) 1 tab PO Q6H PRN PRN Reason: Pain, Moderate (4-6) Sodium Chloride (Sodium Chloride Flush Syringe 10 Ml) 10 ml IV BID [facility] Last Admin: 08/01/19 09:27 Dose: 10 ml Documented by: Sodium Chloride (Sodium Chloride Flush Syringe 10 Ml) 10 ml IV PRN PRN PRN Reason: LINE FLUSH Physical Examination Vital signs: Vital Signs Temp Pulse Resp BP Pulse Ox 100.3 F H 81 18 138/77 99 07/31/19 12:57 07/31/19 12:57 07/31/19 12:57 07/31/19 12:57 07/31/19 12:57 Results - Laboratory Findings CBC and BMP: 08/01/19 15:45 08/02/19 02:20 PT/INR, D-dimer PT 14.5 Sec. (12.2-14.9) 07/31/19 13:15 INR 1.12 (0.87-1.13) 07/31/19 13:15 D-Dimer 1021.33 ng/mlDDU (0-234) H 08/01/19 09:00 Abnormal lab findings: Abnormal Labs 07/31/19 07/31/19 07/31/19 13:15 13:15 13:15 MCH 27 L RDW 15.5 H Lymph % (Auto) 36.8 H [place] % (Auto) 8.3 H D-Dimer 772.77 H Chloride BUN 25 H Creatinine 1.6 H Glucose 114 H Troponin T 0.067 H Albumin Cholesterol 218 H LDL Cholesterol Direct 139 H HDL Cholesterol 64 H 08/01/19 08/01/19 08/01/19 04:31 04:31 09:00 MCH 27 L RDW 15.5 H Lymph % (Auto) 46.7 H [place] % (Auto) 8.4 H D-Dimer 1021.33 H Chloride 108.6 H BUN 23 H Creatinine 1.5 H Glucose Troponin T Albumin 3.6 L Cholesterol LDL Cholesterol Direct HDL Cholesterol
--- NOTE | 2019-08-01 11:41 | Consultation ---
History of Present Illness Consult date: 08/01/19 Consult reason: elevated troponin History of present illness: 73yr old woman with Dementia who is admitted with fever, cough, on isolation for suspected coronavirus. WBC is normal. Chest x-ray report is negative for acute abnormality. Ventilation perfusion scan reports an intermediate probability for PE. Cardiology consultation has been requested for mild rise of troponin, likely in the setting of acute renal failure. Creatinine of 1.6. There was no report of chest pain. An ECG is benign, normal sinus rhythm. 3 months ago an echocardiogr am showed a normal left ventricular systolic function, ejection fraction 55-60%. Medications and Allergies Allergies Allergy/AdvReac Type Severity Reaction Status Date / Time Penicillins Allergy Rash Verified 10/25/16 11:27 Home Medications Medication Instructions Recorded Confirmed Last Taken Type Famotidine [Pepcid] 20 mg PO BID tablet 05/01/19 Unknown Rx amLODIPine 5 mg PO QDAY tablet 05/01/19 Unknown Rx hydrALAZINE [Apresoline TAB] 50 mg PO Q8HR tablet 05/01/19 Unknown Rx Active Meds: Active Medications Acetaminophen (Tylenol) 650 mg PO Q4H PRN PRN Reason: Pain MILD(1-3)/Fever >100.5/SANTO Amlodipine Besylate (Amlodipine) 5 mg PO QDAY [facility] Last Admin: 08/01/19 09:23 Dose: 5 mg Documented by: Famotidine (Pepcid) 20 mg PO QAM [facility] Last Admin: 08/01/19 09:22 Dose: 20 mg Documented by: Hydralazine HCl (Apresoline) 50 mg PO Q8HR [facility] Last Admin: 08/01/19 09:27 Dose: Not Given Documented by: Hydromorphone HCl (Dilaudid) 0.5 mg IV Q3H PRN PRN Reason: Pain , Severe (7-10) Sodium Chloride (Nacl 0.9% 1000 Ml) 1,000 mls @ 75 mls/hr IV DIRECT [facility] Last Admin: 07/31/19 23:25 Dose: 75 mls/hr Documented by: Ceftriaxone Sodium (Rocephin/Ns 2 Gm/100 Ml) 2 gm in 100 mls @ 200 mls/hr IV Q24HR [facility]; Protocol Last Admin: 08/01/19 09:22 Dose: 200 mls/hr Documented by: Heparin Sodium/Sodium Chloride (Heparin/ 0.45% Nacl-25,000 Unit/500 Ml) 25,000 unit in 500 mls @ 24 mls/hr IV TITR [facility]; Protocol Sodium Chloride (Nacl 0.45%) 1,000 mls @ 100 mls/hr IV DIRECT [facility] Stop: 08/02/19 21:59 Lorazepam (Ativan) 1 mg IV Q3H PRN PRN Reason: Agitation Last Admin: 08/01/19 10:29 Dose: 1 mg Documented by: Metoclopramide HCl (Reglan) 5 mg IV Q6H PRN PRN Reason: Nausea And Vomiting Ondansetron HCl (Zofran) 4 mg IV Q8H PRN PRN Reason: Nausea And Vomiting Oxycodone/Acetaminophen (Percocet 5/325) 1 tab PO Q6H PRN PRN Reason: Pain, Moderate (4-6) Sodium Chloride (Sodium Chloride Flush Syringe 10 Ml) 10 ml IV BID [facility] Last Admin: 08/01/19 09:27 Dose: 10 ml Documented by: Sodium Chloride (Sodium Chloride Flush Syringe 10 Ml) 10 ml IV PRN PRN PRN Reason: LINE FLUSH Physical Examination Vital Signs Temp Pulse Resp BP Pulse Ox 100.3 F H 81 18 138/77 99 07/31/19 12:57 07/31/19 12:57 07/31/19 12:57 07/31/19 12:57 07/31/19 12:57 General appearance: no acute distress Cardiac: Positive: Reg Rate and Rhythm Results 08/01/19 04:31 08/01/19 04:31 Cardiac Enzymes 08/01/19 Range/Units 04:31 AST 27 (5-40) units/L Coagulation 07/31/19 Range/Units 13:15 PT 14.5 (12.2-14.9) Sec. INR 1.12 (0.87-1.13) APTT 29.9 (24.2-36.6) Sec. Lipids 07/31/19 Range/Units 13:15 Triglycerides 112 (2-149) mg/dL Cholesterol 218 H (50-199) mg/dL HDL Cholesterol 64 H (40-59) mg/dL Cholesterol/HDL Ratio 3.40 % CBC 07/31/19 08/01/19 Range/Units 13:15 04:31 WBC 5.4 6.1 (4.5-11.0) K/mm3 RBC 4.20 4.04 (3.65-5.03) M/mm3 Hgb 11.4 10.9 (10.1-14.3) gm/dl Hct 35.4 33.5 (30.3-42.9) % Plt Count 147 154 (140-440) K/mm3 Lymph # 2.0 2.9 (1.2-5.4) K/mm3 [place] # 0.5 0.5 (0.0-0.8) K/mm3 Eos # 0.1 0.1 (0.0-0.4) K/mm3 Baso # 0.0 0.0 (0.0-0.1) K/mm3 Comprehensive Metabolic Panel 07/31/19 08/01/19 Range/Units 13:15 04:31 Sodium 138 144 (137-145) mmol/L Potassium 4.0 3.7 (3.6-5.0) mmol/L Chloride 103.6 108.6 H (98-107) mmol/L Carbon Dioxide 22 23 (22-30) mmol/L BUN 25 H 23 H (7-17) mg/dL Creatinine 1.6 H 1.5 H (0.7-1.2) mg/dL Glucose 114 H 92 (65-100) mg/dL Calcium 9.2 8.8 (8.4-10.2) mg/dL AST 27 (5-40) units/L ALT 15 (7-56) units/L Alkaline Phosphatase 63 (35-129) units/L Total Protein 6.9 (6.3-8.2) g/dL Albumin 3.6 L (3.9-5) g/dL Assessment and Plan - Patient Problems (1) Elevated troponin Current Visit: Yes Status: Acute Plan to address problem: Nonspecific troponin no complaints of chest pain. ECG was normal sinus rhythm Echocardiogram done 03/2019 showed normal left ventricular systolic function, ejection fraction 55-60%. Recommend: No further cardiac workup is indicated. We will sign off.
[2019-08-01] MEDS: HEPARIN/ 0.45% NACL DRIP 25,000 UNIT/500 ML BAG IV SCH (12:10)
[2019-08-01] MEDS: SODIUM CHLORIDE 0.45% 1,000 ML IV SCH (12:41)
--- NOTE | 2019-08-01 16:01 | Progress Note ---
Assessment and Plan / MARGARETTE (acute kidney injury) Sec to ATN, cont IV fluids for now /Acute PE CXR--Normal Intermediate probability for PE - initiate heparin drip consult Pulmonary for further Mx May need CTA chest to confirm diagnosis / Elevated troponin - nSTEMI type 2 likely from PE and MARGARETTE Trend the troponin Cardiology consulted and recommended medical Mx / Suspected COVID 19 -ruled out negative test /Advance dementia, cont supportive care / Hypertension Cont antihypertensives / DVT prophylaxis, Heparin drip Brief History: 73-year-old female with history of hypertension, CHF (55-60% EF), Parkinson's disease, dementia, presented to ED by EMS for "not feeling well" x1 day and cough with blood stained sputum. Subjective Date of service: 08/01/19 Objective - Exam Narrative Exam: General appearance: Present: no acute distress, well-nourished - EENT Eyes: Present: PERRL ENT: hearing intact, clear oral mucosa - Neck Neck: Present: supple, normal ROM - Respiratory Respiratory effort: normal Respiratory: bilateral: CTA, rhonchi - Cardiovascular Heart rate: 78 Rhythm: regular Heart Sounds: Present: S1 & S2. Absent: rub, click - Extremities Extremities: no ischemia, pulses intact, pulses symmetrical, No edema Peripheral Pulses: within normal limits - Abdominal General gastrointestinal: Present: soft, non-tender, non-distended, normal bowel sounds Female genitourinary: Present: normal - Integumentary Integumentary: Present: clear, warm, dry - Musculoskeletal Musculoskeletal: gait normal, strength equal bilaterally - Psychiatric Psychiatric: appropriate mood/affect, - Neurologic Neurologic: CNII-XII intact, moves all extremities - Constitutional Vitals: Vital Signs - 12hr 08/01/19 08/01/19 08/01/19 04:16 04:46 05:00 Temperature Pulse Rate 71 74 78 Respiratory 19 18 16 Rate Blood Pressure 132/67 138/68 133/74 Blood Pressure [Left] O2 Sat by Pulse 97 95 95 Oximetry 08/01/19 08/01/19 08/01/19 05:16 05:30 05:46 Temperature Pulse Rate 72 77 73 Respiratory 16 15 14 Rate Blood Pressure 133/74 122/77 122/77 Blood Pressure [Left] O2 Sat by Pulse 97 95 98 Oximetry 08/01/19 08/01/19 08/01/19 06:16 06:30 07:30 Temperature 98.2 F Pulse Rate 67 74 74 Respiratory 15 18 18 Rate Blood Pressure 132/67 138/77 Blood Pressure 138/72 [Left] O2 Sat by Pulse 96 95 95 Oximetry 08/01/19 08/01/19 08/01/19 08:00 09:23 12:00 Temperature 98.2 F 98.4 F Pulse Rate 66 Respiratory Rate Blood Pressure 159/85 Blood Pressure [Left] O2 Sat by Pulse Oximetry 08/01/19 13:59 Temperature Pulse Rate 80 Respiratory Rate Blood Pressure 158/83 Blood Pressure [Left] O2 Sat by Pulse Oximetry - Labs CBC & Chem 7: 08/01/19 15:45 08/01/19 04:31 Labs: Abnormal lab results 08/01/19 08/01/19 08/01/19 Range/Units 04:31 04:31 09:00 MCH 27 L (28-32) pg RDW 15.5 H (13.2-15.2) % Lymph % (Auto) 46.7 H (13.4-35.0) % [place] % (Auto) 8.4 H (0.0-7.3) % D-Dimer 1021.33 H (0-234) ng/mlDDU Chloride 108.6 H (98-107) mmol/L BUN 23 H (7-17) mg/dL Creatinine 1.5 H (0.7-1.2) mg/dL Albumin 3.6 L (3.9-5) g/dL HEART Score - HEART Score Troponin: Troponin T 0.018 ng/mL (0.00-0.029) 08/01/19 09:00
[2019-08-01 16:08] LABS: Hematocrit 36.5 % (30.3-42.9); Hemoglobin 11.6 gm/dl (10.1-14.3)
[2019-08-01 16:17] LABS: INR 1.27 (0.87-1.13)
[2019-08-01 16:44] LABS: Partial Thromboplastin Time 215.6 Sec. (24.2-36.6)
[2019-08-01] MEDS ORDERED: hydrALAZINE 20 MG/1 ML INJ IV PRN (18:35)
[2019-08-02 03:01] LABS: Calcium 8.8 mg/dL (8.4-10.2)
[2019-08-02] MEDS: hydrALAZINE 25 MG TAB PO SCH ×3 (06:47→21:46)
[2019-08-02] MEDS: oxyCODONE /ACETAMINOPHEN 5-325MG TAB PO PRN (09:05)
[2019-08-02] MEDS: FAMOTIDINE 20 MG TAB PO SCH (09:05)
[2019-08-02] MEDS: amLODIPine 5 MG TAB PO SCH (09:05)
[2019-08-02] MEDS: LORazepam 2 MG/ML VIAL IV PRN ×3 (09:06→17:56)
[2019-08-02] MEDS: cefTRIAXone/NS 2 GM/100 ML 2 GM/100 ML BAG IV SCH (09:06)
[2019-08-02] MEDS: HEPARIN/ 0.45% NACL DRIP 25,000 UNIT/500 ML BAG IV SCH (12:35)
--- NOTE | 2019-08-02 14:01 | Progress Note ---
Assessment and Plan Chest pain. Generalized malaise. Possible chronic obstructive pulmonary disease. Elevated serum troponins. Acute kidney injury. Hyperlipidemia. History of congestive heart failure. Hypertension. Obesity. Parkinson's disease. Dementia. Hepatitis. History of cataracts. - continue empiric anticoagulation for ACS / VTE - continue IV .45 NS X 2 more liters - order CTA of chest in am - continue ACS work-up - prn supplemental oxygen to keep O2 sats > 90% - prn bronchodilators with pulm hygiene per RT - avoid nephrotoxins, renally dose all medications - continue mobility protocols to prevent pressure ulcers - PT/OT as tolerated - accuchecks with glycemic control per SSI for target blood glucose < 180 mg/dL - GI & VTE prophylaxis - Flu & pneumovax per protocol - continue other care per attending / other consultants - prn analgesia per pain score ... re-evaluate in am & prn Subjective Date of service: 08/02/19 Principal diagnosis: Chest pain; COPD; NSTEMI; MARGARETTE; H/O CHF; HTN; Obesity; Parkinson's dx Interval history: Patient is seen today for: Chest pain; Possible COPD; NSTEMI; MARGARETTE; H/O CHF; HTN; Obesity; Parkinson's disease. Seen and examined at bedside; 24hour events reviewed; nursing and respiratory care staff consulted; no adverse overnight events reported to me; resting peacefully in bed; serum creatinine improved but still elevated but did not get all the IVF ordered; no N/V/F/C Objective Vital Signs - 12hr 08/02/19 08/02/19 08/02/19 03:57 04:00 06:47 Temperature 97.2 F L Pulse Rate 68 Pulse Rate [ 78 From Monitor] Respiratory 18 Rate Blood Pressure 138/65 O2 Sat by Pulse 94 Oximetry 08/02/19 08/02/19 08/02/19 08:00 09:00 09:05 Temperature 97.6 F Pulse Rate 88 76 Pulse Rate [ From Monitor] Respiratory Rate Blood Pressure 120/56 O2 Sat by Pulse Oximetry 08/02/19 12:00 Temperature 98.9 F Pulse Rate Pulse Rate [ 78 From Monitor] Respiratory 18 Rate Blood Pressure O2 Sat by Pulse 94 Oximetry Constitutional: no acute distress, other (elderly obese female with mildly increased resp[iratopry effort at rest) Eyes: non-icteric ENT: oropharynx moist Neck: supple, no lymphadenopathy Effort: mildly labored Ascultation: Bilateral: diminished breath sounds, rhonchi (scant) Percussion: Bilateral: not dull Cardiovascular: regular rate and rhythm Gastrointestinal: normoactive bowel sounds, soft, non-tender, non-distended Integumentary: rash Extremities: no cyanosis, no edema, pulses normal, no ischemia or petechiae Neurologic: non-focal exam (grossly), pupils equal and round, motor strength normal and, other (+ dementia) Psychiatric: mood appropriate, affect normal CBC and BMP: 08/05/19 04:30 08/03/19 15:10 ABG, PT/INR, D-dimer: PT/INR, D-dimer PT 15.6 Sec. (12.2-14.9) H 08/01/19 15:45 INR 1.27 (0.87-1.13) H 08/01/19 15:45 D-Dimer 1021.33 ng/mlDDU (0-234) H 08/01/19 09:00 Abnormal lab findings: Abnormal Labs 07/31/19 07/31/19 07/31/19 13:15 13:15 13:15 MCH 27 L RDW 15.5 H Lymph % (Auto) 36.8 H [place] % (Auto) 8.3 H PT INR APTT D-Dimer 772.77 H Heparin Anti-Xa Level Potassium Chloride BUN 25 H Creatinine 1.6 H Glucose 114 H Troponin T 0.067 H Albumin Cholesterol 218 H LDL Cholesterol Direct 139 H HDL Cholesterol 64 H 08/01/19 08/01/19 08/01/19 04:31 04:31 09:00 MCH 27 L RDW 15.5 H Lymph % (Auto) 46.7 H [place] % (Auto) 8.4 H PT INR APTT D-Dimer 1021.33 H Heparin Anti-Xa Level Potassium Chloride 108.6 H BUN 23 H Creatinine 1.5 H Glucose Troponin T Albumin 3.6 L Cholesterol LDL Cholesterol Direct HDL Cholesterol 08/01/19 08/01/19 08/02/19 15:45 19:38 02:20 MCH RDW Lymph % (Auto) [place] % (Auto) PT 15.6 H INR 1.27 H APTT 215.6 H* D-Dimer Heparin Anti-Xa Level 1.13 H Potassium 3.5 L Chloride 108.2 H BUN 20 H Creatinine 1.3 H Glucose Troponin T Albumin Cholesterol LDL Cholesterol Direct HDL Cholesterol Chest x-ray: image reviewed (no acuite process) Allied health notes reviewed: nursing
--- NOTE | 2019-08-02 14:03 | Consultation ---
PULMONARY CONSULTATION NOTE CONSULTING PHYSICIAN: Dr. cSott. REASON FOR CONSULTATION: Possible pulmonary embolism. CHIEF COMPLAINT AND HISTORY OF PRESENT ILLNESS: The patient is a now 73-year-old female with past medical history significant amongst other things for a diagnosis of Parkinson's disease with dementia, but also heart failure with preserved ejection fraction, brought into the Emergency Room. According to her daughter who brought her at that time, she has not been feeling well for about a day. She had been coughing. There was some streaky hemoptysis. They had denied fevers or chills, nausea, vomiting, diarrhea, abdominal pain. She did complain of some chest pain prior to getting to the Emergency Room. She has a remote tobacco smoking history according to the family. She was evaluated in the Emergency Room and as part of the workup, a V/Q scan was done, which was read as an intermediate probability. We are asked to assist with evaluation for possible pulmonary embolism. When I stopped by to see her, she was resting in bed, again significant dementia, unable to give me much of the history. She was also evaluated for COVID-19 infection. Family had reported no known contacts and the coronavirus PCR test was negative. PAST MEDICAL HISTORY: Again, significant for hypertension, heart failure with preserved ejection fraction, chronic liver disease, dementia, history of hepatitis, history of Parkinson's disease and history of cataracts. MEDICATIONS: She was on at the time I stopped by to see were reviewed, pertinent medications include the following: Tylenol 650 mg p.o. q. 4 hours p.r.n. mild pain or fevers, amlodipine 5 mg p.o. daily, Pepcid 20 mg p.o. daily, hydralazine 50 mg p.o. q. 8 hours, Dilaudid 0.5 mg IV q. 3 hours p.r.n. severe pain, Rocephin 2 g IV daily, heparin drip was going, Ativan 1 mg IV q. 3 hours p.r.n. agitation, Reglan 5 mg IV q. 6 hours p.r.n. nausea and vomiting, Zofran 4 mg IV q. 8 hours p.r.n. nausea and vomiting, Percocet 5/325 one tablet p.o. q. 6 hours p.r.n. moderate pain. ALLERGIES: PENICILLINS. Nature of this allergy is unknown. DIET: Obese lady, acute weight loss or gain history is unknown. FAMILY AND SOCIAL HISTORY: Lives in the community. She has a remote [id number] tobacco smoking history. Family history otherwise unobtainable. REVIEW OF SYSTEMS: Difficult to obtain secondary to the patient's medical and mental condition. Since she has been here, no gross hematochezia or melena, no gross hematuria, no hematemesis, no hemoptysis, no witnessed seizures. Review of systems otherwise unobtainable or as in the body of history above. PHYSICAL EXAMINATION: VITAL SIGNS: On examination at presentation in the Emergency Room, temperature was 100.3 degrees Fahrenheit, pulse of 81, respiratory rate of 18, blood pressure 138/77, O2 sats were 99%, inspired oxygen concentration at that time was not recorded. When I stopped by to see her, O2 sats were 97% that was on room air. GENERAL: Elderly looking female, normocephalic, atraumatic, talking to me with full sentences with mildly increased respiratory effort at rest. HEAD, EYES, EARS, NOSE AND THROAT: She was anicteric, no conjunctival erythema. Oropharynx was moist. No gross jugular venous distention, no thyromegaly. Grossly, there were no palpable lymph nodes in the supraclavicular or submandibular lymph node chains. I should mention she did have cataracts. They were obvious. LUNGS: Auscultation of both lung persaud significant only for diminished bilateral breath sounds. No active wheezing. HEART: Heart sounds 1 and 2 were heard. They were regular in rate and rhythm at the time of my evaluation without overt rubs or murmurs. ABDOMEN: Soft, full, bowel sounds positive, nontender, no palpable hepatosplenomegaly. EXTREMITIES: Without overt digital clubbing or cyanosis, no pedal edema. Pedal pulses were 2+ bilaterally. NEUROLOGIC: Pupils were equal, round, about 4 mm, reactive to light. Extraocular muscle movements appeared intact. She moved all 4 extremities spontaneously. SKIN: Poor turgor; however, without overt cellulitis or rash in the areas examined. PSYCHIATRIC: Mood and affect were normal and appropriate respectively. LABORATORY DATA: From my review are as follows: Admission white cell count 5400, hemoglobin 11.4, hematocrit 35.4, platelet count was 147. D-dimer was elevated at 773. INR within normal limits. Serum sodium was 138, potassium 4.0, chloride 104, bicarbonate 22, BUN 25, creatinine 1.6 and glucose was 114. Troponin was up at 0.067. LDL cholesterol 139. Total cholesterol 218. Urinalysis was negative for nitrites and leukocyte esterase and really bland. Coronavirus PCR testing was negative. No microbiology studies. Chest x-ray was done. I have reviewed the chest x-ray. I have also reviewed the radiologist's interpretation is somewhat lordotic film. Borderline cardiomegaly. For her age, really no acute process that I can see. Perhaps some evidence of air trapping. The V/Q scan was done. I have reviewed the report, is an intermediate probability for pulmonary embolism. The chest x-ray does show an element of hyperinflation and likely air trapping. ASSESSMENT: 1. Chest pain. 2. Generalized malaise. 3. Possible chronic obstructive pulmonary disease. 4. Elevated serum troponins. 5. Acute kidney injury. 6. Hyperlipidemia. 7. History of congestive heart failure. 8. Hypertension. 9. Obesity. 10. Parkinson's disease. 11. Dementia. 12. Hepatitis. 13. History of cataracts. PLAN: I do feel that with hydration we can get this serum creatinine better. I do feel the air trapping and likely obstructive airway disease has contributed to the intermediate probability of V/Q scan. I will put her on IV fluids. I will go with half NS in light of the serum sodium being on the high side and see if we can get this within normal limits. At that point, I will get a CT angiogram and the plan will be to go ahead and get a definitive answer as to whether there are PEs or not. I have a low pretest clinical probability, so the intermediate probability of V/Q scan will need to be taken with a pinch of salt. Otherwise, continue with acute coronary syndrome workup. A 2D echocardiogram if done will be beneficial to evaluate right-sided pressures. Empiric community-acquired pneumonia therapy is appropriate. She is appropriately on GI prophylaxis. She is on full anticoagulation with heparin. Flu and pneumonia vaccination will be addressed per protocol. Thank you very much for the consult. We will follow along and make further recommendations as picture progresses/becomes clearer. JOB# [id number] [email or web address]/JAY ELIAS
[2019-08-02] MEDS: SODIUM CHLORIDE 0.45% 1000 ML 1,000 ML IV SCH (14:16)
[2019-08-02] MEDS: SODIUM CHLORIDE 0.45% 1,000 ML IV SCH (14:21)
--- NOTE | 2019-08-02 17:22 | Progress Note ---
Assessment and Plan - Patient Problems (1) Dementia Current Visit: Yes Status: Acute Plan to address problem: Patient with dementia what appears to be mood disorder. Patient has received Ativan very calm now comfortable stating that she would like to go home. No distress. (2) MARGARETTE (acute kidney injury) Current Visit: Yes Status: Acute Plan to address problem: Acute kidney injury secondary to ATN. Should do well with gentle volume hydration. (3) Acute chest pain Current Visit: Yes Status: Acute Plan to address problem: Chest pain thought to be secondary to pulmonary embolism. Not cardiogenic. (4) HTN (hypertension) Current Visit: Yes Status: Acute Plan to address problem: Blood pressure at present has optimal control at this time. 120/56 continue amlodipine. (5) Pulmonary embolism Current Visit: Yes Status: Acute Plan to address problem: Patient with intermediate probability for pulmonary embolism has been started on heparin drip. CTA to be done in a.m. to ensure patient in fact has PE prior to a commitment for anticoagulation. Patient currently hemodynamically stable. History Interval history: Patient 73-year-old female with a history of hypertension congestive heart failure last ejection fraction 55%, Parkinson's disease originally presented with shortness of breath dyspnea on exertion. Hospital course complicated by episode of anxiety in which she was given Ativan. Patient resting comfortably states she wants to go home. Oxygenating well on room air. Patient was started on heparin drip. Hospitalist Physical - Constitutional Vitals: Temp Pulse Resp BP Pulse Ox 98.9 F 65 18 142/63 94 08/02/19 12:00 08/02/19 13:56 08/02/19 12:00 08/02/19 13:56 08/02/19 12:00 General appearance: Present: no acute distress - EENT Eyes: Present: PERRL, EOM intact ENT: hearing intact, clear oral mucosa, dentition normal - Neck Neck: Present: supple, normal ROM - Respiratory Respiratory effort: normal Respiratory: bilateral: CTA - Cardiovascular Rhythm: regular Heart Sounds: Present: S1 & S2 - Extremities Extremities: no ischemia, pulses intact, pulses symmetrical, normal temperature, normal color Extremity abnormal: edema Peripheral Pulses: within normal limits - Abdominal General gastrointestinal: soft, non-tender, non-distended, normal bowel sounds, no hepatomegaly, no splenomegaly - Integumentary Integumentary: Present: clear, dry - Psychiatric Psychiatric: appropriate mood/affect, other (Poor cognition dementia.) - Neurologic Neurologic: CNII-XII intact, no focal deficits, moves all extremities HEART Score - HEART Score Troponin: Troponin T < 0.010 ng/mL (0.00-0.029) 08/01/19 19:38 Results - Labs CBC & Chem 7: 08/01/19 15:45 08/02/19 02:20 Labs: Laboratory Last Values WBC 6.1 K/mm3 (4.5-11.0) 08/01/19 04:31 RBC 4.04 M/mm3 (3.65-5.03) 08/01/19 04:31 Hgb 11.6 gm/dl (10.1-14.3) 08/01/19 15:45 Hct 36.5 % (30.3-42.9) 08/01/19 15:45 MCV 83 fl (79-97) 08/01/19 04:31 MCH 27 pg (28-32) L 08/01/19 04:31 MCHC 33 % (30-34) 08/01/19 04:31 RDW 15.5 % (13.2-15.2) H 08/01/19 04:31 Plt Count 162 K/mm3 (140-440) 08/01/19 15:45 Lymph % (Auto) 46.7 % (13.4-35.0) H 08/01/19 04:31 [place] % (Auto) 8.4 % (0.0-7.3) H 08/01/19 04:31 Eos % (Auto) 2.0 % (0.0-4.3) 08/01/19 04:31 Baso % (Auto) 0.8 % (0.0-1.8) 08/01/19 04:31 Lymph # 2.9 K/mm3 (1.2-5.4) 08/01/19 04:31 [place] # 0.5 K/mm3 (0.0-0.8) 08/01/19 04:31 Eos # 0.1 K/mm3 (0.0-0.4) 08/01/19 04:31 Baso # 0.0 K/mm3 (0.0-0.1) 08/01/19 04:31 Seg Neutrophils % 42.1 % (40.0-70.0) 08/01/19 04:31 Seg Neutrophils # 2.6 K/mm3 (1.8-7.7) 08/01/19 04:31 PT 15.6 Sec. (12.2-14.9) H 08/01/19 15:45 INR 1.27 (0.87-1.13) H 08/01/19 15:45 APTT 215.6 Sec. (24.2-36.6) H* 08/01/19 15:45 D-Dimer 1021.33 ng/mlDDU (0-234) H 08/01/19 09:00 Heparin Anti-Xa Level 0.84 U.I./ml (0.3-0.7) H 08/02/19 14:36 Sodium 144 mmol/L (137-145) 08/02/19 02:20 Potassium 3.5 mmol/L (3.6-5.0) L 08/02/19 02:20 Chloride 108.2 mmol/L (98-107) H 08/02/19 02:20 Carbon Dioxide 24 mmol/L (22-30) 08/02/19 02:20 Anion Gap 15 mmol/L 08/02/19 02:20 BUN 20 mg/dL (7-17) H 08/02/19 02:20 Creatinine 1.3 mg/dL (0.7-1.2) H 08/02/19 02:20 Estimated GFR 49 ml/min 08/02/19 02:20 BUN/Creatinine Ratio 15 % 08/02/19 02:20 Glucose 87 mg/dL (65-100) 08/02/19 02:20 Hemoglobin A1c 5.0 % (4-6) 08/01/19 04:31 Calcium 8.8 mg/dL (8.4-10.2) 08/02/19 02:20 Ferritin 105.6 ng/mL (13.0-400.0) 08/01/19 09:00 Total Bilirubin 0.40 mg/dL (0.1-1.2) 08/01/19 04:31 AST 27 units/L (5-40) 08/01/19 04:31 ALT 15 units/L (7-56) 08/01/19 04:31 Alkaline Phosphatase 63 units/L (35-129) 08/01/19 04:31 Troponin T < 0.010 ng/mL (0.00-0.029) 08/01/19 19:38 Total Protein 6.9 g/dL (6.3-8.2) 08/01/19 04:31 Albumin 3.6 g/dL (3.9-5) L 08/01/19 04:31 Albumin/Globulin Ratio 1.1 % 08/01/19 04:31 Triglycerides 112 mg/dL (2-149) 07/31/19 13:15 Cholesterol 218 mg/dL (50-199) H 07/31/19 13:15 LDL Cholesterol Direct 139 mg/dL (50-130) H 07/31/19 13:15 HDL Cholesterol 64 mg/dL (40-59) H 07/31/19 13:15 Cholesterol/HDL Ratio 3.40 % 07/31/19 13:15 Procalcitonin 0.08 ng/mL (<0.15) 08/01/19 09:00 Urine Color Yellow (Yellow) 07/31/19 15:00 Urine Turbidity Clear (Clear) 07/31/19 15:00 Urine pH 5.0 (5.0-7.0) 07/31/19 15:00 Ur Specific [place] 1.010 (1.003-1.030) 07/31/19 15:00 Urine Protein <15 mg/dl mg/dL (Negative) 07/31/19 15:00 Urine Glucose (UA) Neg mg/dL (Negative) 07/31/19 15:00 Urine Ketones Neg mg/dL (Negative) 07/31/19 15:00 Urine Blood Neg (Negative) 07/31/19 15:00 Urine Nitrite Neg (Negative) 07/31/19 15:00 Urine Bilirubin Neg (Negative) 07/31/19 15:00 Urine Urobilinogen < 2.0 mg/dL (<2.0) 07/31/19 15:00 Ur Leukocyte Esterase Neg (Negative) 07/31/19 15:00 Urine WBC (Auto) 1.0 /HPF (0.0-6.0) 07/31/19 15:00 Urine RBC (Auto) 1.0 /HPF (0.0-6.0) 07/31/19 15:00 U Epithel Cells (Auto) 1.0 /HPF (0-13.0) 07/31/19 15:00 Urine Mucus Few /HPF 07/31/19 15:00 Coronavirus (PCR) Negative (Negative) 08/01/19 Unknown [place]/IV: Voiding Method External Female Catheter IV Catheter Type [Left Forearm INT / Saline Lock ] Active Medications - Current Medications Current Medications: Generic Name Dose Route Start Last Admin Trade Name Freq PRN Reason Stop Dose Admin Acetaminophen 650 mg 07/31/19 22:48 Tylenol PO Q4H PRN Pain MILD(1-3)/Fever >100.5/SANTO Amlodipine Besylate 5 mg 08/01/19 10:00 08/02/19 09:05 Amlodipine PO Not Given QDAY JOURDAN Famotidine 20 mg 07/31/19 23:00 08/02/19 09:05 Pepcid PO 20 mg QAM JOURDAN Administration Hydralazine HCl 50 mg 07/31/19 23:35 08/02/19 13:56 Apresoline PO 50 mg Q8HR JOURDAN Administration Hydralazine HCl 10 mg 08/01/19 18:35 Apresoline IV Q4HR PRN SBP > 160 Hydromorphone HCl 0.5 mg 07/31/19 22:48 Dilaudid IV Q3H PRN Pain , Severe (7-10) Sodium Chloride 1,000 mls @ 75 mls/hr 07/31/19 23:00 07/31/19 23:25 Nacl 0.9% 1000 Ml IV 75 mls/hr DIRECT JOURDAN Administration Ceftriaxone Sodium 2 gm in 100 mls @ 200 mls/hr 08/01/19 10:00 08/02/19 09:06 Rocephin/Ns 2 Gm/100 Ml IV 08/05/19 10:29 200 mls/hr Q24HR JOURDAN Administration Protocol Heparin Sodium/Sodium Chloride 25,000 unit in 500 mls @ 24 mls/hr 08/01/19 11:15 08/02/19 16:58 Heparin/ 0.45% Nacl-25,000 Unit/500 Ml IV 900 units/hr TITR JOURDAN 18 mls/hr Titration Protocol 1,200 UNITS/HR Sodium Chloride 1,000 mls @ 100 mls/hr 08/01/19 12:00 08/02/19 14:21 Nacl 0.45% IV 08/02/19 21:59 100 mls/hr DIRECT JOURDAN Administration Sodium Chloride 1,000 mls @ 75 mls/hr 08/02/19 15:00 Nacl 0.45% 1000 Ml IV 08/03/19 04:19 DIRECT JOURDAN Lorazepam 1 mg 07/31/19 21:13 08/02/19 12:35 Ativan IV 1 mg Q3H PRN Administration Agitation Metoclopramide HCl 5 mg 07/31/19 22:48 Reglan IV Q6H PRN Nausea And Vomiting Ondansetron HCl 4 mg 07/31/19 22:48 Zofran IV Q8H PRN Nausea And Vomiting Oxycodone/Acetaminophen 1 tab 07/31/19 22:48 08/02/19 09:05 Percocet 5/325 PO 1 tab Q6H PRN Administration Pain, Moderate (4-6) Sodium Chloride 10 ml 07/31/19 23:00 08/02/19 13:55 Sodium Chloride Flush Syringe 10 Ml IV 10 ml BID JOURDAN Administration Sodium Chloride 10 ml 07/31/19 22:48 Sodium Chloride Flush Syringe 10 Ml IV PRN PRN LINE FLUSH Nutrition/Malnutrition Assess - Dietary Evaluation Nutrition/Malnutrition Findings: Nutrition Notes Start: 08/02/19 11:02 Freq: Status: Active Protocol: Document 08/02/19 11:02 LM (Rec: 08/02/19 11:48 LM [email or web address]) Nutrition Notes Need for Assessment generated from: medical doctor md,MST Initial or Follow up Brief Note Current Diagnosis Acute Kidney Injury, Hypertension,Heart Failure Other Pertinent Diagnosis Suspected COVID-19, Dementia, DVT, Parkinson's, fever Current Diet Cardiac Labs/Tests K 3.5 BUN 20 Cr 1.3 Pertinent Medications Reviewed Height 5 ft 6 in Weight 80 kg [place] Body Weight (kg) 59.09 BMI 28.4 Weight change and time frame 6% wt loss in 3 months Weight Status Overweight Subjective/Other Information RN screen for MST. Unable to speak to pt. RN states pt is eating very well but still is hungry. RN asked for double portions for pt. Pt weighed 85kg last visit (05/01/19). Burn Absent Trauma Absent Current % PO Good (75-100%) Minimum of two criteria No Reduced Bearing Maker Strength Measurably Reduced (severe) Nutrition Intervention Follow-Up By: 08/05/19 Additional Comments F/U for stable intakes, need for double portions
[2019-08-03] MEDS: SODIUM CHLORIDE 0.45% 1000 ML 1,000 ML IV SCH (00:42)
[2019-08-03 05:50] LABS: Hematocrit 32.4 % (30.3-42.9); Hemoglobin 10.6 gm/dl (10.1-14.3)
[2019-08-03] MEDS: hydrALAZINE 25 MG TAB PO SCH ×3 (05:53→21:38)
--- NOTE | 2019-08-03 06:43 | Progress Note ---
Assessment and Plan Acute PE CXR--Normal Intermediate probability for PE -CTA negative for PE Stop heparin infusion Stop all IVFs, patient has mild interstitial edema on CT Discharge planning- may need placement, has some social challenges. Daughter not responding to calls MARGARETTE (acute kidney injury) -resolved Elevated troponin - NSTEMI type 2 Suspected COVID 19 -test negative Subjective Date of service: 08/03/19 Interval history: 73-year-old female with history of hypertension, CHF (55-60% EF), Parkinson's disease, dementia, presented to ED by EMS for "not feeling well" x1 day and cough with blood stained sputum. Follow up : Pulmonary embolism, hemoptysis Seen and examined. No adverse event overnight. Consulted with nursing staff. No fevers, no nausea or vomiting. She denies any chest pain, no shortness of breath. "I want to go home." Vitals, labs, medications, chart and imaging reviewed Objective - Exam Narrative Exam: General appearance: Present: no acute distress, well-nourished on room air, not cristobal any distress - EENT Eyes: Present: PERRL ENT: hearing intact, clear oral mucosa - Neck Neck: Present: supple, normal ROM - Respiratory Respiratory effort: normal Respiratory: bilateral: CTA, rhonchi - Cardiovascular Heart rate: 78 Rhythm: regular Heart Sounds: Present: S1 & S2. Absent: rub, click - Extremities Extremities: no ischemia, pulses intact, pulses symmetrical, No edema Peripheral Pulses: within normal limits - Abdominal General gastrointestinal: Present: soft, non-tender, non-distended, normal bowel sounds Female genitourinary: Present: normal - Integumentary Integumentary: Present: clear, warm, dry - Musculoskeletal Musculoskeletal: gait normal, strength equal bilaterally - Psychiatric Psychiatric: appropriate mood/affect, - Neurologic Neurologic: CNII-XII intact, moves all extremities Vital Signs - 12hr 08/02/19 08/02/19 08/02/19 18:50 19:00 19:10 Temperature Pulse Rate 76 73 73 Pulse Rate [ From Monitor] Respiratory 17 20 20 Rate Blood Pressure 147/53 147/53 166/49 O2 Sat by Pulse 97 98 97 Oximetry 08/02/19 08/02/19 08/02/19 19:20 19:30 19:40 Temperature Pulse Rate 72 75 77 Pulse Rate [ From Monitor] Respiratory 18 14 16 Rate Blood Pressure 166/49 166/49 166/49 O2 Sat by Pulse 97 98 99 Oximetry 08/02/19 08/02/19 08/02/19 19:50 20:00 20:10 Temperature Pulse Rate 72 70 71 Pulse Rate [ 72 From Monitor] Respiratory 20 19 17 Rate Blood Pressure 166/49 166/49 166/49 O2 Sat by Pulse 97 97 97 Oximetry 08/02/19 08/02/19 08/02/19 20:20 20:30 20:40 Temperature Pulse Rate 72 72 73 Pulse Rate [ From Monitor] Respiratory 18 18 19 Rate Blood Pressure 166/49 166/49 166/49 O2 Sat by Pulse 97 97 97 Oximetry 08/02/19 08/02/19 08/02/19 20:50 21:00 21:10 Temperature Pulse Rate 70 78 77 Pulse Rate [ From Monitor] Respiratory 15 18 19 Rate Blood Pressure 166/49 166/49 166/49 O2 Sat by Pulse 97 98 99 Oximetry 08/02/19 08/02/19 08/02/19 21:20 21:30 21:40 Temperature Pulse Rate 73 73 81 Pulse Rate [ From Monitor] Respiratory 17 19 17 Rate Blood Pressure 166/49 166/49 166/49 O2 Sat by Pulse 98 97 98 Oximetry 08/02/19 08/02/19 08/02/19 21:46 21:50 22:00 Temperature Pulse Rate 83 81 65 Pulse Rate [ From Monitor] Respiratory 15 18 Rate Blood Pressure 108/56 108/56 108/56 O2 Sat by Pulse 99 98 Oximetry 08/02/19 08/02/19 08/02/19 22:10 22:20 22:30 Temperature Pulse Rate 78 70 78 Pulse Rate [ From Monitor] Respiratory 18 14 17 Rate Blood Pressure 94/61 94/61 94/61 O2 Sat by Pulse 99 99 98 Oximetry 08/02/19 08/02/19 08/02/19 22:40 22:50 23:00 Temperature Pulse Rate 67 83 80 Pulse Rate [ From Monitor] Respiratory 18 19 17 Rate Blood Pressure 94/61 94/61 94/61 O2 Sat by Pulse 99 98 99 Oximetry 08/02/19 08/02/19 08/02/19 23:11 23:21 23:31 Temperature Pulse Rate 69 82 84 Pulse Rate [ From Monitor] Respiratory 18 20 18 Rate Blood Pressure 94/61 94/61 94/61 O2 Sat by Pulse 100 99 99 Oximetry 08/02/19 08/02/19 08/03/19 23:41 23:51 00:00 Temperature 98.3 F Pulse Rate 73 74 79 Pulse Rate [ 79 From Monitor] Respiratory 19 17 21 Rate Blood Pressure 151/69 151/69 O2 Sat by Pulse 99 98 100 Oximetry 08/03/19 08/03/19 08/03/19 00:01 00:11 00:21 Temperature Pulse Rate 70 67 63 Pulse Rate [ From Monitor] Respiratory 17 17 18 Rate Blood Pressure 136/66 136/66 136/66 O2 Sat by Pulse 98 99 100 Oximetry 08/03/19 08/03/19 08/03/19 00:31 00:41 00:51 Temperature Pulse Rate 71 74 80 Pulse Rate [ From Monitor] Respiratory 17 16 16 Rate Blood Pressure 136/66 136/66 136/66 O2 Sat by Pulse 99 100 99 Oximetry 08/03/19 08/03/19 08/03/19 01:01 01:11 01:21 Temperature Pulse Rate 68 70 76 Pulse Rate [ From Monitor] Respiratory 18 16 18 Rate Blood Pressure 160/67 136/66 136/66 O2 Sat by Pulse 98 98 98 Oximetry 08/03/19 08/03/19 01:31 05:53 Temperature Pulse Rate 74 65 Pulse Rate [ From Monitor] Respiratory 15 Rate Blood Pressure 136/66 140/60 O2 Sat by Pulse 98 Oximetry CBC and BMP: 08/03/19 05:24 08/03/19 15:10 ABG, PT/INR, D-dimer: PT/INR, D-dimer PT 15.6 Sec. (12.2-14.9) H 08/01/19 15:45 INR 1.27 (0.87-1.13) H 08/01/19 15:45 D-Dimer 1021.33 ng/mlDDU (0-234) H 08/01/19 09:00 Abnormal lab findings: Abnormal Labs 07/31/19 07/31/19 07/31/19 13:15 13:15 13:15 MCH 27 L RDW 15.5 H Plt Count Lymph % (Auto) 36.8 H [place] % (Auto) 8.3 H PT INR APTT D-Dimer 772.77 H Heparin Anti-Xa Level Potassium Chloride BUN 25 H Creatinine 1.6 H Glucose 114 H Troponin T 0.067 H Albumin Cholesterol 218 H LDL Cholesterol Direct 139 H HDL Cholesterol 64 H 08/01/19 08/01/19 08/01/19 04:31 04:31 09:00 MCH 27 L RDW 15.5 H Plt Count Lymph % (Auto) 46.7 H [place] % (Auto) 8.4 H PT INR APTT D-Dimer 1021.33 H Heparin Anti-Xa Level Potassium Chloride 108.6 H BUN 23 H Creatinine 1.5 H Glucose Troponin T Albumin 3.6 L Cholesterol LDL Cholesterol Direct HDL Cholesterol 08/01/19 08/01/19 08/02/19 15:45 19:38 02:20 MCH RDW Plt Count Lymph % (Auto) [place] % (Auto) PT 15.6 H INR 1.27 H APTT 215.6 H* D-Dimer Heparin Anti-Xa Level 1.13 H Potassium 3.5 L Chloride 108.2 H BUN 20 H Creatinine 1.3 H Glucose Troponin T Albumin Cholesterol LDL Cholesterol Direct HDL Cholesterol 08/02/19 08/02/19 08/03/19 13:15 14:36 05:24 MCH RDW Plt Count 134 L Lymph % (Auto) [place] % (Auto) PT INR APTT D-Dimer Heparin Anti-Xa Level 0.88 H 0.84 H Potassium Chloride BUN Creatinine Glucose Troponin T Albumin Cholesterol LDL Cholesterol Direct HDL Cholesterol
[2019-08-03] MEDS: cefTRIAXone/NS 2 GM/100 ML 2 GM/100 ML BAG IV SCH (10:30)
[2019-08-03] MEDS: amLODIPine 5 MG TAB PO SCH (10:30)
[2019-08-03] MEDS: FAMOTIDINE 20 MG TAB PO SCH (10:30)
[2019-08-03] MEDS ORDERED: amLODIPine 5 MG TAB PO SCH ×2 (10:36→11:00)
[2019-08-03] MEDS: LORazepam 2 MG/ML VIAL IV PRN ×2 (13:15→21:39)
[2019-08-03 15:42] LABS: Calcium 8.6 mg/dL (8.4-10.2)
--- NOTE | 2019-08-03 17:17 | Progress Note ---
Assessment and Plan - Patient Problems (1) Dementia Current Visit: Yes Status: Acute Qualifiers: Dementia type: Alzheimer's disease Plan to address problem: Patient with dementia what appears to be mood disorder. Patient has received Ativan very calm now comfortable stating that she would like to go home. No distress. We will add antipsychotic for now to help patient rest. Ativan is not holding patient. (2) MARGARETTE (acute kidney injury) Current Visit: Yes Status: Resolved Plan to address problem: Acute kidney injury secondary to ATN. Should do well with gentle volume hydration. Resolving. (3) Acute chest pain Current Visit: Yes Status: Acute Plan to address problem: Patient remains chest pain-free at this time. (4) HTN (hypertension) Current Visit: Yes Status: Acute Plan to address problem: Blood pressure is on the low side. Will decrease amlodipine to 5 mg. (5) Pulmonary embolism Current Visit: Yes Status: Acute Plan to address problem: Unlikely pulmonary embolism. Patient sats are fine. EKG is fine. Patient screaming hollering out. No acute concerns. If CT scan chest CT angiogram negative will discharge home discontinue heparin drip. Subjective Date of service: 08/03/19 Principal diagnosis: Shortness of breath. Interval history: Patient 73-year-old female with a history of hypertension congestive heart failure last ejection fraction 55%, Parkinson's disease originally presented with shortness of breath dyspnea on exertion. Hospital course complicated by episode of anxiety in which she was given Ativan. Patient resting comfortably states she wants to go home. Oxygenating well on room air. Patient was started on heparin drip. Patient presently just hollers out. No distress. I want to go home Boy I want to go home. No distress however not lower. Sats are fine. Unable to get in touch with family. Called again at 3:15 PM. Objective - Constitutional Vitals: Vital Signs - 12hr 08/03/19 08/03/19 08/03/19 05:21 05:31 05:41 Temperature Pulse Rate 67 64 57 L Pulse Rate [ From Monitor] Respiratory 17 17 16 Rate Blood Pressure 140/60 140/60 140/60 O2 Sat by Pulse 97 99 98 Oximetry 08/03/19 08/03/19 08/03/19 05:51 05:53 06:01 Temperature Pulse Rate 56 L 65 81 Pulse Rate [ From Monitor] Respiratory 16 16 Rate Blood Pressure 140/60 140/60 166/78 O2 Sat by Pulse 98 99 Oximetry 08/03/19 08/03/19 08/03/19 06:11 06:21 06:31 Temperature Pulse Rate 66 59 L 58 L Pulse Rate [ From Monitor] Respiratory 17 17 14 Rate Blood Pressure 166/78 166/78 166/78 O2 Sat by Pulse 99 98 98 Oximetry 08/03/19 08/03/19 08/03/19 06:41 07:01 08:00 Temperature 98.2 F Pulse Rate 65 72 82 Pulse Rate [ 82 From Monitor] Respiratory 18 17 16 Rate Blood Pressure 166/78 141/70 O2 Sat by Pulse 98 97 99 Oximetry 08/03/19 08/03/19 08/03/19 08:01 09:01 10:01 Temperature Pulse Rate 71 67 79 Pulse Rate [ From Monitor] Respiratory 16 16 14 Rate Blood Pressure 150/79 150/79 157/79 O2 Sat by Pulse 98 99 99 Oximetry 08/03/19 08/03/19 08/03/19 10:30 11:01 12:00 Temperature 98.8 F Pulse Rate 90 85 Pulse Rate [ 85 From Monitor] Respiratory 12 17 Rate Blood Pressure 157/79 173/83 O2 Sat by Pulse 100 99 Oximetry 08/03/19 08/03/19 08/03/19 12:01 13:01 13:14 Temperature Pulse Rate 81 82 Pulse Rate [ From Monitor] Respiratory 15 13 Rate Blood Pressure 173/83 173/83 155/87 O2 Sat by Pulse 98 99 Oximetry 08/03/19 08/03/19 08/03/19 14:00 15:01 16:00 Temperature 98.7 F Pulse Rate 85 81 83 Pulse Rate [ 83 From Monitor] Respiratory 14 17 14 Rate Blood Pressure 155/87 99/78 O2 Sat by Pulse 100 98 99 Oximetry 08/03/19 16:07 Temperature Pulse Rate 77 Pulse Rate [ From Monitor] Respiratory Rate Blood Pressure 99/78 O2 Sat by Pulse Oximetry General appearance: Present: mild distress, other (Distress is secondary to her dementia and not distress from pain or shortness of breath.) - EENT Eyes: PERRL, EOM intact ENT: hearing intact, clear oral mucosa - Neck Neck: supple, normal ROM - Respiratory Respiratory effort: normal - Cardiovascular Rhythm: regular Heart Sounds: Present: S1 & S2. Absent: gallop, rub Extremities: no ischemia - Gastrointestinal General gastrointestinal: Present: soft, non-tender, non-distended, normal bowel sounds - Musculoskeletal Musculoskeletal: generalized weakness - Neurologic Neurologic: moves all extremities - Psychiatric Psychiatric: agitated - Labs CBC & Chem 7: 08/03/19 05:24 08/03/19 15:10 Labs: Abnormal lab results 08/03/19 08/03/19 Range/Units 05:24 15:10 Plt Count 134 L (140-440) K/mm3 Potassium 3.5 L (3.6-5.0) mmol/L Chloride 107.1 H (98-107) mmol/L Glucose 102 H (65-100) mg/dL HEART Score - HEART Score Troponin: Troponin T < 0.010 ng/mL (0.00-0.029) 08/01/19 19:38
[2019-08-03] MEDS ORDERED: ENOXAPARIN 100 MG/1 ML INJ SUB-Q SCH (18:00)
[2019-08-03] MEDS: oxyCODONE /ACETAMINOPHEN 5-325MG TAB PO PRN (21:38)
[2019-08-03] MEDS: ENOXAPARIN 80 MG/0.8 ML INJ SUB-Q SCH (21:39)
[2019-08-04] MEDS: hydrALAZINE 25 MG TAB PO SCH ×3 (05:51→21:16)
[2019-08-04] MEDS: FAMOTIDINE 20 MG TAB PO SCH (10:56)
[2019-08-04] MEDS: ENOXAPARIN 80 MG/0.8 ML INJ SUB-Q SCH ×2 (10:56→21:16)
[2019-08-04] MEDS: oxyCODONE /ACETAMINOPHEN 5-325MG TAB PO PRN ×2 (10:56→21:15)
[2019-08-04] MEDS: LORazepam 2 MG/ML VIAL IV PRN ×2 (10:57→21:15)
[2019-08-04] MEDS: amLODIPine 10 MG TAB PO SCH (10:57)
[2019-08-04] MEDS: cefTRIAXone/NS 2 GM/100 ML 2 GM/100 ML BAG IV SCH (10:57)
--- NOTE | 2019-08-04 15:20 | Discharge Summary ---
Providers - Providers Date of Admission: 08/03/19 11:08 Date of discharge: 08/04/19 Attending physician: BARBARA FRANK 08/01/19 08:12 Consult to Physician [CONS] Routine Comment: Consulting Provider: GEETHA JOHNSON Physician Instructions: Reason For Exam: Elevated Trop 08/01/19 10:57 Consult to Physician [CONS] Routine Comment: Consulting Provider: CHANG LOTT Physician Instructions: Reason For Exam: pulmonary embolism Primary care physician: AWNING ASSEMBLER Hospitalization Condition: Stable Pertinent studies: VQ scan showed low probability. Patient elevated d-dimer therefore had CTA of the chest which was negative for pulmonary embolism. Patient had low probability for pulmonary embolism initially. Patient stable for discharge. Hospital course: Patient admitted for initial episode of shortness of breath difficult to tell because because of advanced dementia. Patient had a d-dimer of [address] up[address] angiogram VQ scan low probability stable for discharge no evidence of shortness of breath remained well oxygenated throughout hospital stay. Disposition: - TO HOME OR SELFCARE - Discharge Diagnoses (1) Dementia Status: Acute Qualifiers: Dementia type: Alzheimer's disease Comment: Advanced dementia. Follow-up primary care for dose titration for mood medication. (2) MARGARETTE (acute kidney injury) Status: Resolved Comment: Resolved (3) Acute chest pain Status: Ruled-out (4) HTN (hypertension) Status: Acute Comment: Patient maintain excellent control blood pressure throughout hospital stay. (5) Pulmonary embolism Status: Acute Comment: No evidence of PE. Discontinue anticoagulation. Core Measure Documentation - Palliative Care Palliative Care/ Comfort Measures: Not Applicable - Core Measures Any of the following diagnoses?: none Exam - Constitutional Vitals: Temp Pulse Resp BP Pulse Ox 98.3 F 77 17 131/72 98 08/04/19 04:00 08/04/19 14:01 08/04/19 14:01 08/04/19 14:01 08/04/19 14:01 General appearance: Present: no acute distress, well-nourished - EENT Eyes: Present: PERRL ENT: hearing intact, clear oral mucosa - Neck Neck: Present: supple, normal ROM - Respiratory Respiratory effort: normal Respiratory: bilateral: CTA - Cardiovascular Heart Sounds: Present: S1 & S2. Absent: rub, click - Extremities Extremities: pulses symmetrical, No edema Peripheral Pulses: within normal limits - Abdominal General gastrointestinal: Present: soft, non-tender, non-distended, normal bowel sounds Female genitourinary: Present: normal - Integumentary Integumentary: Present: clear, warm, dry - Musculoskeletal Musculoskeletal: gait normal, strength equal bilaterally - Psychiatric Psychiatric: appropriate mood/affect, intact judgment & insight - Neurologic Neurologic: CNII-XII intact, moves all extremities Plan Activity: up only with assistance Weight Bearing Status: Touch Down Weight Bearing Diet: low cholesterol Special Instructions: home health RN Follow up with: PRIMARY CARE, [Primary Care Provider] - 3-5 Days Prescriptions: hydrALAZINE [Apresoline TAB] 50 mg PO Q8HR #60 tablet
[2019-08-05 05:27] LABS: Hematocrit 33.7 % (30.3-42.9); Hemoglobin 11.1 gm/dl (10.1-14.3)
[2019-08-05] MEDS: hydrALAZINE 25 MG TAB PO SCH ×2 (05:59→13:36)
[2019-08-05] MEDS: FAMOTIDINE 20 MG TAB PO SCH (09:29)
[2019-08-05] MEDS: amLODIPine 10 MG TAB PO SCH (09:29)
[2019-08-05] MEDS: cefTRIAXone/NS 2 GM/100 ML 2 GM/100 ML BAG IV SCH (09:30)
[2019-08-05] MEDS: LORazepam 2 MG/ML VIAL IV PRN ×2 (09:30→15:05)
[2019-08-05] MEDS: ENOXAPARIN 80 MG/0.8 ML INJ SUB-Q SCH (09:30)
--- NOTE | 2019-08-05 10:46 | Discharge Summary ---
Providers - Providers Date of Admission: 08/03/19 11:08 Date of discharge: 08/05/19 Attending physician: BARBARA FRANK 08/01/19 08:12 Consult to Physician [CONS] Routine Comment: Consulting Provider: GEETHA JOHNSON Physician Instructions: Reason For Exam: Elevated Trop 08/01/19 10:57 Consult to Physician [CONS] Routine Comment: Consulting Provider: CHANG LOTT Physician Instructions: Reason For Exam: pulmonary embolism Primary care physician: TAXATION ECONOMIST Hospitalization Condition: Stable Pertinent studies: CTA of chest unremarkable. Hospital course: Patient was scheduled to go for discharge yesterday. Was unable to get in touch with any family after multiple attempts.CXR--Normal Intermediate probability for PE -CTA negative for PE Stop heparin infusion Stop all IVFs, patient has mild interstitial edema on CT Disposition: - TO HOME OR SELFCARE - Discharge Diagnoses (1) Dementia Status: Acute Qualifiers: Dementia type: Alzheimer's disease Comment: Advanced dementia. Follow-up primary care for dose titration for mood medication. (2) MARGARETTE (acute kidney injury) Status: Resolved Comment: Resolved (3) Acute chest pain Status: Ruled-out Comment: Chest pain resolved thought to be secondary to reflux musculoskeletal pain. (4) HTN (hypertension) Status: Acute Comment: Patient maintain excellent control blood pressure throughout hospital stay. (5) Pulmonary embolism Status: Acute Comment: No evidence of PE. Discontinue anticoagulation. Core Measure Documentation - Palliative Care Palliative Care/ Comfort Measures: Not Applicable - Core Measures Any of the following diagnoses?: none Exam - Constitutional Vitals: Temp Pulse Resp BP Pulse Ox 98.4 F 72 13 160/132 99 08/05/19 08:00 08/05/19 09:29 08/05/19 09:01 08/05/19 09:29 08/05/19 09:01 General appearance: Present: no acute distress, well-nourished - EENT Eyes: Present: PERRL ENT: hearing intact, clear oral mucosa - Neck Neck: Present: supple, normal ROM - Respiratory Respiratory effort: normal Respiratory: bilateral: CTA - Cardiovascular Heart Sounds: Present: S1 & S2. Absent: rub, click - Extremities Extremities: pulses symmetrical, No edema Peripheral Pulses: within normal limits - Abdominal General gastrointestinal: Present: soft, non-tender, non-distended, normal bowel sounds Female genitourinary: Present: normal - Integumentary Integumentary: Present: clear, warm, dry - Musculoskeletal Musculoskeletal: gait normal, strength equal bilaterally - Psychiatric Psychiatric: appropriate mood/affect, intact judgment & insight - Neurologic Neurologic: CNII-XII intact, moves all extremities Plan Special Instructions: home health RN Follow up with: PRIMARY CARE, [Primary Care Provider] - 3-5 Days Prescriptions: hydrALAZINE [Apresoline TAB] 50 mg PO Q8HR #60 tablet
--- NOTE | 2019-08-05 14:05 | Progress Note ---
Assessment and Plan Chest pain. Generalized malaise. Possible chronic obstructive pulmonary disease. Elevated serum troponins. Acute kidney injury. Hyperlipidemia. History of congestive heart failure. Hypertension. Obesity. Parkinson's disease. Dementia. Hepatitis. History of cataracts. - stop full anticoagulation for VTE - needs oputpatient pulmonary clinic evaluation - s/p ACS work-up - prn supplemental oxygen to keep O2 sats > 90% - prn bronchodilators with pulm hygiene per RT - avoid nephrotoxins, renally dose all medications - continue mobility protocols to prevent pressure ulcers - PT/OT as tolerated - accuchecks with glycemic control per SSI for target blood glucose < 180 mg/dL - GI & VTE prophylaxis - Flu & pneumovax per protocol - continue other care per attending / other consultants - prn analgesia per pain score ... re-evaluate in am & prn Subjective Date of service: 08/05/19 Principal diagnosis: Chest pain; COPD; NSTEMI; MARGARETTE; H/O CHF; HTN; Obesity; Parkinson's dx Interval history: Patient is seen today for: Chest pain; Possible COPD; NSTEMI; MARGARETTE; H/O CHF; HTN; Obesity; Parkinson's disease. Seen and examined at bedside; 24hour events reviewed; nursing and respiratory care staff consulted; no adverse overnight events reported to me; resting peacefully in bed; CTA negative; CT does show evidence of emphysema Objective Vital Signs - 12hr 08/05/19 08/05/19 08/05/19 03:01 04:00 04:01 Temperature Pulse Rate 58 L 80 80 Pulse Rate [ 72 From Monitor] Respiratory 17 16 11 L Rate Respiratory Rate [Head] Blood Pressure 121/62 146/90 O2 Sat by Pulse 96 99 100 Oximetry 08/05/19 08/05/19 08/05/19 04:30 05:01 06:01 Temperature 98.4 F Pulse Rate 66 65 Pulse Rate [ From Monitor] Respiratory 11 L 13 Rate Respiratory Rate [Head] Blood Pressure 146/90 146/90 O2 Sat by Pulse 99 97 Oximetry 08/05/19 08/05/19 08/05/19 07:01 08:00 08:01 Temperature 98.4 F Pulse Rate 64 75 86 Pulse Rate [ 81 From Monitor] Respiratory 13 19 20 Rate Respiratory 14 Rate [Head] Blood Pressure 146/90 146/90 O2 Sat by Pulse 96 99 99 Oximetry 08/05/19 08/05/19 08/05/19 09:01 09:29 10:01 Temperature Pulse Rate 82 72 80 Pulse Rate [ From Monitor] Respiratory 13 14 Rate Respiratory Rate [Head] Blood Pressure 160/132 160/132 160/132 O2 Sat by Pulse 99 99 Oximetry 08/05/19 08/05/19 08/05/19 11:01 12:00 12:01 Temperature 98.1 F Pulse Rate 74 85 83 Pulse Rate [ 81 From Monitor] Respiratory 13 15 15 Rate Respiratory 15 Rate [Head] Blood Pressure 160/132 155/86 O2 Sat by Pulse 99 98 98 Oximetry 08/05/19 08/05/19 13:01 13:36 Temperature Pulse Rate 79 77 Pulse Rate [ From Monitor] Respiratory 13 Rate Respiratory Rate [Head] Blood Pressure 155/86 155/86 O2 Sat by Pulse 100 Oximetry Constitutional: no acute distress, other (elderly obese female with mildly increased resp[iratopry effort at rest) Eyes: non-icteric ENT: oropharynx moist Neck: supple, no lymphadenopathy Effort: normal Ascultation: Bilateral: diminished breath sounds, rhonchi (scant) Percussion: Bilateral: not dull Cardiovascular: regular rate and rhythm Gastrointestinal: normoactive bowel sounds, soft, non-tender, non-distended Integumentary: rash Extremities: no cyanosis, no edema, pulses normal, no ischemia or petechiae Neurologic: non-focal exam (grossly), pupils equal and round, motor strength normal and, other (+ dementia) Psychiatric: mood appropriate, affect normal CBC and BMP: 08/05/19 04:30 08/03/19 15:10 ABG, PT/INR, D-dimer: PT/INR, D-dimer PT 15.6 Sec. (12.2-14.9) H 08/01/19 15:45 INR 1.27 (0.87-1.13) H 08/01/19 15:45 D-Dimer 1021.33 ng/mlDDU (0-234) H 08/01/19 09:00 Abnormal lab findings: Abnormal Labs 07/31/19 07/31/19 07/31/19 13:15 13:15 13:15 MCH 27 L RDW 15.5 H Plt Count Lymph % (Auto) 36.8 H [place] % (Auto) 8.3 H PT INR APTT D-Dimer 772.77 H Heparin Anti-Xa Level Potassium Chloride BUN 25 H Creatinine 1.6 H Glucose 114 H Troponin T 0.067 H Albumin Cholesterol 218 H LDL Cholesterol Direct 139 H HDL Cholesterol 64 H 08/01/19 08/01/19 08/01/19 04:31 04:31 09:00 MCH 27 L RDW 15.5 H Plt Count Lymph % (Auto) 46.7 H [place] % (Auto) 8.4 H PT INR APTT D-Dimer 1021.33 H Heparin Anti-Xa Level Potassium Chloride 108.6 H BUN 23 H Creatinine 1.5 H Glucose Troponin T Albumin 3.6 L Cholesterol LDL Cholesterol Direct HDL Cholesterol 08/01/19 08/01/19 08/02/19 15:45 19:38 02:20 MCH RDW Plt Count Lymph % (Auto) [place] % (Auto) PT 15.6 H INR 1.27 H APTT 215.6 H* D-Dimer Heparin Anti-Xa Level 1.13 H Potassium 3.5 L Chloride 108.2 H BUN 20 H Creatinine 1.3 H Glucose Troponin T Albumin Cholesterol LDL Cholesterol Direct HDL Cholesterol 08/02/19 08/02/19 08/03/19 13:15 14:36 05:24 MCH RDW Plt Count 134 L Lymph % (Auto) [place] % (Auto) PT INR APTT D-Dimer Heparin Anti-Xa Level 0.88 H 0.84 H Potassium Chloride BUN Creatinine Glucose Troponin T Albumin Cholesterol LDL Cholesterol Direct HDL Cholesterol 08/03/19 15:10 MCH RDW Plt Count Lymph % (Auto) [place] % (Auto) PT INR APTT D-Dimer Heparin Anti-Xa Level Potassium 3.5 L Chloride 107.1 H BUN Creatinine Glucose 102 H Troponin T Albumin Cholesterol LDL Cholesterol Direct HDL Cholesterol Allied health notes reviewed: nursing
[2019-08-05 17:27] VITALS: BP 124/66
== END 2019-08-05 17:27 | DRG 682 ==
LOC: ED 12:48 → 4A 15:58 → IMCU 18:05 → OBSVTOIN 08-03 11:08
PROVIDERS: ADMIT Internal Medicine; ATTEND Internal Medicine
DX: N17.0 Acute kidney failure with tubular necrosis (principal); I21.A1 Myocardial infarction type 2; I50.42 Chronic combined systolic (congestive) and diastolic (congestive) heart failure; G20 Parkinson's disease; I11.0 Hypertensive heart disease with heart failure; J40 Bronchitis, not specified as acute or chronic; G30.9 Alzheimer's disease, unspecified; F02.80 Dementia in other diseases classified elsewhere, unspecified severity, without behavioral disturbance, psychotic disturbance, mood disturbance, and anxiety; E78.5 Hyperlipidemia, unspecified; K75.9 Inflammatory liver disease, unspecified; E66.9 Obesity, unspecified; Z88.0 Allergy status to penicillin; Z90.710 Acquired absence of both cervix and uterus; Z87.891 Personal history of nicotine dependence; Z82.49 Family history of ischemic heart disease and other diseases of the circulatory system; Z03.818 Encounter for observation for suspected exposure to other biological agents ruled out; Z68.28 Body mass index [BMI] 28.0-28.9, adult
CPT/HCPCS: 36415; 71045; 71275; 78580; 80048; 80053; 80061; 81001; 82728; 83036; 84145; 84484; 85014; 85018; 85025; 85049; 85379; 85520; 85610; 85730; 93005; G0378; A9540; J0696; J1644; J1650; J2060; J7030; J7040; Q9967; U0003-CS